=== PATIENT | male | born 1980 | race Caucasian/White ===

== ENCOUNTER 2020-04-21 13:46 | Outpatient (CLI) | payer SELFPAY ==
--- NOTE | 2020-04-21 13:52 | USCV_ITS ---
Landen Luis Jr Age: 39 Gender: M : 1980 Exam Date: 04/21/2020 14:25 Ordering Phys: MARYLOU Arizmendi APRN Technologist: Jonnie Sams Exam Location: [facility] [place] Indication: ACUTE EMBOLISM AND THROMBUS PROCEDURES: Venous duplex imaging was performed in bilateral lower extremities. The following venous structures were evaluated: common femoral vein, profunda vein, proximal portion of the greater saphenous vein, superficial femoral vein, and the popliteal vein. In addition, the posterior tibial and peroneal trunk were evaluated. Serial compression, augmentation maneuvers, and spectral Doppler flow evaluation were performed. FINDINGS: The femoral vein could not be identified at prox, mid, and distal due to patient body habitus. All other veins examined appear free of clot at this time. CONCLUSIONS Femoral vein not well visualized due to body habitus. Otherwise no evidence of LEFT LE DVT Avtar Covarrubias MD (Electronically Signed) Final Date: 21 April 2020 15:56 S
--- NOTE | 2020-04-21 13:52 | XRR_ITS ---
PROCEDURE INFORMATION: Exam: XR Left Knee Exam date and time: 04/21/2020 2:07 PM Age: 39 years old Clinical indication: Knee; Left; Patient HX: Fall a year ago, pain. Lat is best image possible due to PT condition; Additional info: S86.912a - strain of unspecified muscle(s) and tendon(s) at lower leg level, left leg, initial encounter TECHNIQUE: Imaging protocol: XR Left knee. Views: 3 views. COMPARISON: CR Knee 4 views, LEFT [id number] 10/08/2018 11:21 AM FINDINGS: Bones/joints: There is no evidence for acute fracture or malalignment. No significant joint space narrowing. There is small osteophyte formation off the medial tibial plateau. Soft tissues: Normal. The lateral view is limited. XR/XR knee LT 3V* [id number] IMPRESSION: No acute findings. If there is desire for further evaluation, a MRI could be performed.
== END 2020-04-21 13:47 | disposition home or self-care (01) ==
LOC: RAD 13:50
PROVIDERS: PCP Nurse Practitioner Family; Visit Provider Nurse Practitioner Family
DX: I82.402 Acute embolism and thrombosis of unspecified deep veins of left lower extremity; M25.562 Pain in left knee
CPT/HCPCS: 73562; 93971

== ENCOUNTER → 2020-10-30 12:31 | Outpatient (BNVA) | payer SELFPAY | PROVIDERS: PCP Nurse Practitioner Family; Visit Provider Nurse Practitioner Family | DX: I10 Essential (primary) hypertension (principal); I82.402 Acute embolism and thrombosis of unspecified deep veins of left lower extremity; N39.0 Urinary tract infection, site not specified; L03.90 Cellulitis, unspecified | CPT/HCPCS: 84550; 85651; 86140 ==

== ENCOUNTER → 2020-11-13 10:53 | Outpatient (BNVA) | payer SELFPAY | PROVIDERS: PCP Nurse Practitioner Family; Visit Provider Urology | DX: N39.0 Urinary tract infection, site not specified (principal); N39.41 Urge incontinence | CPT/HCPCS: 81003 ==

== ENCOUNTER 2020-11-24 12:16 | Outpatient (CLI) | payer SELFPAY ==
[2020-11-24 12:44] LABS: Basophils % 0.3 %; Eosinophils # 0.2 10^3/uL (0.0-0.8); Eosinophils % 1.6 %; Hematocrit 42.5 % (42.0-52.0); Hemoglobin 12.9 g/dL (11.7-16.6); Lymphocytes # 1.5 10^3/uL (0.8-4.8); Lymphocytes % 11.2 %; Mean Corpuscular HGB Conc 30.4 g/dL (30.0-36.0); Mean Corpuscular Hemoglobin 26.5 pg (28.0-34.0); Mean Corpuscular Volume 87.3 fl (80-94); Monocytes # 0.8 10^3/uL (0.2-0.9); Monocytes % 6.2 %; Neutrophils # 10.79 10^3/uL (1.8-7.7); Neutrophils % 80.2 %; Nucleated Red Blood Cells % 0 %; Platelet Count 316 10^3/cmm (130-400); Red Blood Count 4.87 10^6/uL (4.1-5.3); Red Cell Distribution Width 15.3 % (12.1-15.1); White Blood Count 13.5 10^3/uL (4.0-10.0)
[2020-11-24 13:12] LABS: LAB Peripheral Smear Sent for Review
[2020-11-24 13:14] LABS: Alanine Aminotransferase 26 U/L (0-41); Albumin Level 3.4 g/dL (3.5-5.2); Alkaline Phosphatase 84 IU/L (40-130); Aspartate Amino Transferase 20 U/L (0-40); Blood Urea Nitrogen 10 mg/dL (6-20); C Reactive Protein 27.9 mg/L (0.0-4.9); Calcium 9.1 mg/dL (8.5-10.5); Carbon Dioxide 27 mmol/L (22-29); Chloride 104 mmol/L (98-107); Chol HDL Ratio 2.49 mg/dL (1.0-5.00); Cholesterol 179 mg/dL (0-200); Globulin 3.6 g/dL (1.3-4.6); Glomerular Filtration Rate 124.9 mL/min (90-130); Glucose 105 mg/dL (65-115); HDL Cholesterol 72 mg/dL (60-100); LDL Cholesterol Calculated 85 mg/dL (50-129); LDL HDL Ratio 1.18 RATIO (0.00-3.22); Lactate Dehydrogenase 175 U/L (135-225); NT Pro B Type Natriuretic Pept 113 pg/mL (0-125); Osmolality Calculated 287 mOsm/kg (285-295); Sodium 139 mmol/L (136-145); Thyroid Stimulating Hormone 2.52 uIU/mL (0.27-4.20); Total Bilirubin 0.4 mg/dL (0.15-1.2); Triglycerides 109 mg/dL (0-150); Uric Acid 4.4 mg/dL (3.4-7.0)
[2020-11-24 13:28] LABS: Estmated Average Glucose 105; Hemoglobin A1C 5.3 % (4.0-6.0)
[2020-11-25 12:12] LABS: COMPLEMENT COMPONENT C3C 136 mg/dL (82-185); COMPLEMENT COMPONENT C4C 34 mg/dL (15-53)
[2020-11-25 12:43] LABS: Erythrocyte Sedimentation Rate 46 mm/hr (0-10)
[2020-11-25 13:12] LABS: Lyme AB Screen <0.90 index
[2020-11-25 13:18] LABS: COMPLEMENT, TOTAL (CH50) >60 U/mL (31-60)
[2020-11-25 13:36] LABS: THYROID PEROXIDASE ANTIBODIES 1 IU/mL (<9)
[2020-11-25 14:03] LABS: CENTROMERE B ANTIBODY <1.0 NEG AI (<1.0 NEG); JO-1 ANTIBODY <1.0 NEG AI (<1.0 NEG); RNP ANTIBODY <1.0 NEG AI (<1.0 NEG); SCL-70 ANTIBODY <1.0 NEG AI (<1.0 NEG); SJOGREN'S ANTIBODY (SS-A) <1.0 NEG AI (<1.0 NEG); SM ANTIBODY <1.0 NEG AI (<1.0 NEG); SS-B <1.0 NEG AI (<1.0 NEG)
[2020-11-25 15:42] LABS: ANA SCREEN, IFA NEGATIVE (NEGATIVE)
[2020-11-28 15:41] LABS: DNA AB (DS) CRITHIDIA,IFA NEGATIVE (NEGATIVE)
[2020-11-28 21:08] LABS: E. Chaffeensis AB IGG <1:64; E. Chaffeensis AB IGM <1:20
[2020-11-28 21:16] LABS: RMSF IGG NOT DETECTED; RMSF IGM NOT DETECTED
[2020-12-03 06:59] LABS: Miscellaneous Test See Scanned Lab Rpt
== END 2020-11-24 12:17 | disposition home or self-care (01) ==
LOC: LAB 12:16
PROVIDERS: PCP Nurse Practitioner Family; Visit Provider Family Medicine
DX: D72.820 Lymphocytosis (symptomatic) (principal); R35.89 Other polyuria
CPT/HCPCS: 80053; 80061; 80500; 83036; 83615; 83880; 84443; 84550; 85025; 85651; 86140; 86160; 86162; 86235; 86255; 86376; 86431; 86618; 86666; 86757; 88271; 88275

== ENCOUNTER 2020-12-07 13:28 | Outpatient (CLI) | payer SELFPAY ==
[2020-12-09 10:40] LABS: Miscellaneous Test See Scanned Lab Rpt
== END 2020-12-07 13:29 | disposition home or self-care (01) ==
LOC: LAB 13:33
PROVIDERS: PCP Family Medicine; Visit Provider Family Medicine
DX: D72.820 Lymphocytosis (symptomatic) (principal)
CPT/HCPCS: 36415; 82533; 88184; 88185

== ENCOUNTER 2021-02-04 11:32 | Outpatient (CLI) | payer SELFPAY ==
[2021-02-04 12:12] LABS: Basophils % 0.2 %; Eosinophils # 0.3 10^3/uL (0.0-0.8); Eosinophils % 2.4 %; Hematocrit 42.2 % (42.0-52.0); Hemoglobin 12.9 g/dL (11.7-16.6); Lymphocytes # 1.5 10^3/uL (0.8-4.8); Lymphocytes % 12.4 %; Mean Corpuscular HGB Conc 30.6 g/dL (30.0-36.0); Mean Corpuscular Hemoglobin 26.4 pg (28.0-34.0); Mean Corpuscular Volume 86.3 fl (80-94); Monocytes # 0.7 10^3/uL (0.2-0.9); Monocytes % 5.6 %; Neutrophils % 78.1 %; Nucleated Red Blood Cells % 0 %; Platelet Count 310 10^3/cmm (130-400); Red Blood Count 4.89 10^6/uL (4.1-5.3); Red Cell Distribution Width 15.7 % (12.1-15.1)
--- NOTE | 2021-02-04 14:53 | ONC CON_ITS ---
Dr. Xiong New Patient Note Patient: Landen Luis Unit #: [id number]: [id number] Dicatated By: Gabe Xiong M.D.Date of Visit: Feb 04, 2021 Onc MED New Patient/Consult Referring Physician: Iain Branch History of Present Illness: Mr. Landen luis, is a 40-year-old gentleman with prolonged history of isolated leukocytosis, was evaluated by PMD and lab work-up done on November 24, 2020 shows mild isolated leukocytosis, peripheral blood smear read by pathology shows leukocytosis with neutrophilia, toxic granulation identified otherwise unremarkable patient underwent whole blood flow cytometry ordered by PMD on November 24, 2020 showed no evident myeloid or lymphoid population detected. Because of longstanding history of isolated leukocytosis, patient was referred to hematology for evaluation. Patient denies any night sweats, denies any recurrent fever, denies any weight loss, patient has morbid obesity, history of recurrent urine tract infections, conjunctivitis due to contact lens or allergies., Denies smoking or alcohol use. Denies any chronic sinus problem. Denies any abdominal fullness or peripheral lymphadenopathy. Denies any chronic skin infection. Past Medical History: Mr. Luis's medical history consists of history of loer extremity DVT, hypertension, and left knee osteophyte. Past Surgical History: There is no documented surgical history. Medications: Metoprolol Tartrate 1 Tablet (of 25 mg) Oral b.i.d. Allergies: amLODIPine Besylate and Penicillins. Social History: Mr. 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 Mr. Luis has never smoked. He has no history of drinking. Family History: There is no documented family history. Review Of Symptoms: Review of Systems is not available for this patient. Vital Signs: Performed on Feb 04, 2021 12:44: 8, 5, 0.00, 0.00 sq.m, 70 in, 99 %, 124 /min (HIGH), 20 /min, 186/113 mm(hg) (HIGH), 97.9 F (LOW), and lbs. Performance Status: 0 - Fully active, able to carry on all predisease activities without restrictions. (ECOG) Physical Examination: ENMT - No mouth sores, no thrush, no jaundice, Respiratory - Poor air entry otherwise clear, Cardiovascular - Regular rate and rhythm of heart, Abdomen - Soft, bowel sounds present, Extremities - No visible edema. Lab/Imaging: Most recent lab results are not available for this patient. Impression: Isolated mild leukocytosis/neutrophilia with normal hemoglobin/platelets, Etiology probably reactive as whole blood flow cytometry done on November 24, 2020 shows no aberrant myeloid or lymphoid population detected, Underlying early myeloproliferative disorder cannot be ruled out Morbid obesity History of recurrent UTIs Essential hypertension DVT, lower extremities Urgency incontinence. Plan: Discussed with patient regarding his labs white blood count 12 hemoglobin 12.9 hematocrit 42.2 platelets 310,000 MCV 86.3 neutrophil count 78%. Clinically, patient doing well with no new signs symptoms testing of infection or inflammation, etiology of his mild leukocytosis appears reactive probably due to chronic inflammation as his sed rate checked on January 24, 2021 was 46 normal being less than 10 patient has chronic conjunctivitis, patient attributed that to contact lens or allergies, may benefit from ophthalmology evaluation, history of recurrent UTI and urine incontinence, may have chronic cystitis causing mild isolated leukocytosis. Other possibility could be due to sleep apnea due to hypoxic induced inflammatory changes in patient with sleep apnea Moreover patient is also complaining of off and on getting up at night while gasping for air, consistent with possibility of sleep apnea Whole blood flow cytometry ordered by PMD showed no aberrant myeloid or lymphoid population, which will rule out malignant process but early myeloproliferative disorder cannot be ruled out. At this point, we will monitor and he will return to clinic in 2 months with CBC in the meantime we will recommend sleep study to confirm sleep apnea, if confirmed, may benefit from CPAP machine, which may help with mild isolated leukocytosis. Also recommend not to use contact lens or consider ophthalmology evaluation. For recurrent UTI and and urine incontinence may recommend urology evaluation. Patient was advised to maintain good hygiene especially in the underarms, under breasts and inguinal area Signed By: Gabe Xiong M.D. <<Signature on File>>
== END 2021-02-04 11:33 | disposition home or self-care (01) ==
LOC: ONCMED 11:36
PROVIDERS: PCP Family Medicine; Visit Provider Internal Medicine Hematology & Oncology
DX: D72.829 Elevated white blood cell count, unspecified (principal); E66.01 Morbid (severe) obesity due to excess calories; I10 Essential (primary) hypertension; I82.409 Acute embolism and thrombosis of unspecified deep veins of unspecified lower extremity; N39.41 Urge incontinence; N39.0 Urinary tract infection, site not specified; Z79.899 Other long term (current) drug therapy
CPT/HCPCS: 36415; 85025; 99204

== ENCOUNTER 2021-04-16 09:30 | Outpatient (CLI) | payer SELFPAY ==
[2021-04-16 10:16] LABS: Basophils % 0.4 %; Eosinophils # 0.2 10^3/uL (0.0-0.8); Eosinophils % 2.2 %; Hematocrit 42.1 % (42.0-52.0); Lymphocytes # 1.4 10^3/uL (0.8-4.8); Lymphocytes % 12.5 %; Mean Corpuscular HGB Conc 30.9 g/dL (30.0-36.0); Mean Corpuscular Hemoglobin 26.5 pg (28.0-34.0); Mean Corpuscular Volume 85.7 fl (80-94); Mean Platelet Volume 11.4 fL (7.4-10.4); Monocytes # 0.8 10^3/uL (0.2-0.9); Monocytes % 7.5 %; Neutrophils # 8.43 10^3/uL (1.8-7.7); Nucleated Red Blood Cells % 0 %; Platelet Count 289 10^3/cmm (130-400); Red Blood Count 4.91 10^6/uL (4.1-5.3); Red Cell Distribution Width 15.7 % (12.1-15.1); White Blood Count 10.9 10^3/uL (4.0-10.0)
== END 2021-04-16 09:31 | disposition home or self-care (01) ==
PROVIDERS: PCP Family Medicine; Visit Provider Internal Medicine Hematology & Oncology
DX: D72.820 Lymphocytosis (symptomatic) (principal)
CPT/HCPCS: 36415; 85025

== ENCOUNTER → 2021-05-04 00:01 | Outpatient (BNVA) | payer SELFPAY | PROVIDERS: PCP Family Medicine; Visit Provider Nurse Practitioner Family | DX: R42 Dizziness and giddiness (principal); H66.93 Otitis media, unspecified, bilateral; D64.9 Anemia, unspecified; I10 Essential (primary) hypertension; R53.83 Other fatigue | CPT/HCPCS: 80053; 80061; 82306; 83036; 83550; 83880; 84443; 85025 ==

== ENCOUNTER 2022-09-15 15:13 | Inpatient (IN) | payer MEDICAID, SELFPAY ==
[2022-09-15] VITALS (7 sets, daily range): BP systolic 163–202; BP diastolic 74–121; PULSE 87–99; RESP 15–17; TEMP 36.8–37.2; O2SAT 95–97
--- NOTE | 2022-09-15 15:45 | USR_ITS ---
PROCEDURE INFORMATION: Exam: US Left Non-Vascular Joint or Other Extremity Structure Exam date and time: 09/15/2022 4:53 PM Age: 42 years old Clinical indication: Cellulitis and edema; Knee; Left; Upper leg and lower leg; Patient HX: Post/medial distal thigh redness and swelling; Additional info: Swollen leg panus on the left TECHNIQUE: Imaging protocol: Left US joint or other nonvascular extremity structure or structures. Real-time ultrasound with image documentation. Limited study. Exam focused on the lower extremity in the region of clinical interest. COMPARISON: US CV venous duplex [facility] [id number] 09/15/2022 4:36 PM FINDINGS: The area of clinical concern in the left leg was evaluated. This is reportedly an area of swelling and redness. Only edematous changes were seen. No mass or fluid collection was identified. US/US soft tissue/extremity [id number] IMPRESSION: As above.
--- NOTE | 2022-09-15 15:45 | USR_ITS ---
PROCEDURE INFORMATION: Exam: US Duplex Left Lower Extremity Veins, Limited Exam date and time: 09/15/2022 4:36 PM Age: 42 years old Clinical indication: Pain; Leg, upper and leg, lower; Left; Additional info: Swelling pain TECHNIQUE: Imaging protocol: Real-time duplex ultrasound of the left extremity with 2-D chandler scale, color Doppler flow and spectral waveform analysis including responses to compression and other maneuvers (when performed) with image documentation. Limited exam focused on the left lower extremity veins. COMPARISON: CR XR knee LT 3V* [id number] 04/21/2020 2:08 PM FINDINGS: Left deep veins: Unremarkable. The common femoral, femoral, proximal profunda femoral and popliteal veins as well as the visualized deep veins of the lower leg are patent without thrombus. Normal Doppler waveforms. Normal compressibility and/or augmentation response. Superficial veins: Unremarkable. Saphenofemoral junction is patent without thrombus. Soft tissues: Unremarkable. US/[place] [id number] IMPRESSION: No evidence of deep vein thrombosis.
[2022-09-15 16:10] LABS: Basophils # 0.1 10^3/uL (0.0-0.1); Basophils % 0.4 %; Eosinophils # 0.3 10^3/uL (0.0-0.8); Hematocrit 41.5 % (42.0-52.0); Hemoglobin 12.1 g/dL (11.7-16.6); Lymphocytes # 1.7 10^3/uL (0.8-4.8); Lymphocytes % 12.5 %; Mean Corpuscular HGB Conc 29.2 g/dL (30.0-36.0); Mean Corpuscular Hemoglobin 26.1 pg (28.0-34.0); Mean Corpuscular Volume 89.4 fl (80-94); Mean Platelet Volume 10.9 fL (7.4-10.4); Monocytes % 7.5 %; Neutrophils # 10.46 10^3/uL (1.8-7.7); Neutrophils % 76.6 %; Nucleated Red Blood Cells % 0 %; Platelet Count 323 10^3/cmm (130-400); Red Blood Count 4.64 10^6/uL (4.1-5.3); Red Cell Distribution Width 16.2 % (12.1-15.1); White Blood Count 13.7 10^3/uL (4.0-10.0)
--- NOTE | 2022-09-15 16:34 | ED_ITS ---
HPI - Skin/Abscess/Foreign Bdy General: Chief complaint: Skin/Abscess/Foreign Body Stated complaint: spot on LT leg/pain Time Seen by Provider: 09/15/22 15:36 Source: patient Mode of arrival: ambulatory History of Present Illness: 42-year-old male presents to the emergency room with complaints of a red painful area medial aspect of his left leg. Patient is super morbidly obese and has a pannus of the left medial thigh. Initially said a couple of months ago it was a little bit reddened and inflamed but has progressively worsened to the point where it involves this entire pannus and has spread proximally. He has not noticed any fever sweats or chills. He has not had any open wounds or drainage. He went to his primary care doctor and was directed here today. MD complaint: other (Cellulitis) Onset (ago): week(s) Location: LLE Severity: moderate Relieving factors: none Exacerbating factors: none Associated symptoms: Deny arthralgias, chills, cough, fever(s), itching, myalgias, nausea, rigidity, short of breath or vomiting Review of Systems Const: Denies: fever(s) or chills Card: Reports: edema and swelling of feet/ankles; Denies: chest pain, dyspnea on exertion or orthopnea Resp: Denies: dyspnea, productive cough or non-productive cough GI: Denies: abdominal pain, nausea or vomiting : Denies: flank pain, dysuria, urinary frequency or urinary urgency Skin/Breast: Denies: rash or pruritus [facility] ED PFSH: Medical History Acute bilateral otitis media Cellulitis Conjunctivitis DVT, lower extremity Elevated WBC count Essential hypertension Hypertension screen Iron deficiency anemia Knee pain, left Medication management Morbidly obese Osteophyte, left knee Strain of left knee Takes iron supplements Urgency incontinence Urinary tract infection in male Vertigo Family History Father , UNKNOWN AGE Automobile accident Social History Smoking and tobacco status: never smoked Alcohol intake: never Substance/Drug Use: never Marital status: Single Current occupational status: employed 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 Physical Exam Const: GENERAL APPEARANCE: cooperative and comfortable ORIENTATION/CONSCIOUSNESS: Yes awake, Yes oriented to person, Yes oriented to place and Yes oriented to time HENMT: COMMON NORMALS: normocephalic, atraumatic and hearing grossly normal bilaterally HEAD & SCALP: normocephalic and atraumatic Resp: COMMON NORMALS: normal respiratory effort, No retractions, No use of accessory muscles and clear to auscultation bilaterally AUSCULTATION: clear to auscultation bilaterally Cardio: COMMON NORMALS: regular rate, regular rhythm and No murmurs present (Cardio) RATE: regular rate RHYTHM: regular rhythm GI: COMMON NORMALS: Soft to palpation and No hepatosplenomegaly present AUSCULTATION: Yes normoactive bowel sounds PALPATION: Yes Soft to palpation, No Tenderness to palpation present (GI), No Guarding due to palpation present (GI) and Yes No hepatosplenomegaly present : OTHER: No evidence of cellulitis extending to the perineal or genital area Extremity: NARRATIVE EXTREMITY EXAM: Left medial leg has a reddened inflamed area. Overlying skin is indurated there is no fluctuant palpable area no skin breakdown ulceration or pointing. Lymphangitic spread proximally Neuro: SENSORIUM/ORIENTATION: Yes oriented to person, Yes oriented to place and Yes oriented to time Skin: COMMON NORMALS: no rashes or lesions noted GENERAL SKIN EXAM: no rashes or lesions noted Course Vital Signs: Vital signs: Vital Signs Temperature 98.1 F 09/16/22 03:51 Pulse Rate 72 09/16/22 05:43 Respiratory Rate 16 09/16/22 03:51 Blood Pressure 171/74 09/16/22 03:51 Pulse Oximetry 93 09/16/22 03:51 Oxygen Delivery Me thod Room Air 09/16/22 03:51 MDM - Skin/Abscess/Foreign Bdy Medicial Decision Making Significant cellulitis with leukocytosis with a potential to progress to even more serious infection. I think at this point he will require IV antibiotics to control and can convert to 2L. There is some proximal spread but no evidence of development infection in the perineal or scrotal area no foreign years gangrene. Discussed with hospitalist orders written Medical Records I reviewed the patient's medical records. Lab Data I reviewed the patient's lab results. 09/15/22 15:53 09/16/22 05:06 Radiology Impressions Soft Tissue Ultrasound 09/15/22 15:45 IMPRESSION: As above. Venous Duplex 09/15/22 15:45 IMPRESSION: No evidence of deep vein thrombosis. Laboratory Results WBC 13.7 10^3/uL (4.0-10.0) H 09/15/22 15:53 RBC 4.64 10^6/uL (4.1-5.3) 09/15/22 15:53 Hgb 12.1 g/dL (11.7-16.6) 09/15/22 15:53 Hct 41.5 % (42.0-52.0) L 09/15/22 15:53 MCV 89.4 fl (80-94) 09/15/22 15:53 MCH 26.1 pg (28.0-34.0) L 09/15/22 15:53 MCHC 29.2 g/dL (30.0-36.0) L 09/15/22 15:53 RDW 16.2 % (12.1-15.1) H 09/15/22 15:53 Plt Count 323 10^3/cmm (130-400) 09/15/22 15:53 MPV 10.9 fL (7.4-10.4) H 09/15/22 15:53 Neut % (Auto) 76.6 % 09/15/22 15:53 Lymph % (Auto) 12.5 % 09/15/22 15:53 Frontier % (Auto) 7.5 % 09/15/22 15:53 Eos % (Auto) 2.0 % 09/15/22 15:53 Baso % (Auto) 0.4 % 09/15/22 15:53 Neut # (Auto) 10.46 10^3/uL (1.8-7.7) H 09/15/22 15:53 Lymph # (Auto) 1.7 10^3/uL (0.8-4.8) 09/15/22 15:53 Frontier # (Auto) 1.0 10^3/uL (0.2-0.9) H 09/15/22 15:53 Eos # (Auto) 0.3 10^3/uL (0.0-0.8) 09/15/22 15:53 Baso # (Auto) 0.1 10^3/uL (0.0-0.1) 09/15/22 15:53 Nucleated RBC % (auto) 0 % 09/15/22 15:53 Nucleated RBCs # 0.0 /100WBC 09/15/22 15:53 Sodium 137 mmol/L (136-145) 09/15/22 15:53 Potassium 4.0 mmol/L (3.5-5.1) 09/15/22 15:53 Chloride 102 mmol/L (98-107) 09/15/22 15:53 Carbon Dioxide 25 mmol/L (22-29) 09/15/22 15:53 Anion Gap 14.0 (5-19) 09/15/22 15:53 BUN 9 mg/dL (6-20) 09/15/22 15:53 Creatinine 0.6 mg/dL (0.7-1.2) L 09/15/22 15:53 GFR Calculation 147.8 mL/min (90-130) H 09/15/22 15:53 Glucose 100 mg/dL (65-115) 09/15/22 15:53 Calculated Osmolality 283 mOsm/kg (285-295) L 09/15/22 15:53 Calcium 9.0 mg/dL (8.5-10.5) 09/15/22 15:53 Total Bilirubin 0.6 mg/dL (0.15-1.2) 09/15/22 15:53 AST 19 U/L (0-40) 09/15/22 15:53 ALT 23 U/L (0-41) 09/15/22 15:53 Alkaline Phosphatase 77 U/L (40-130) 09/15/22 15:53 Total Protein 6.9 g/dL (6.6-8.7) 09/15/22 15:53 Albumin 3.3 g/dL (3.5-5.2) L 09/15/22 15:53 Globulin 3.6 g/dL (1.3-4.6) 09/15/22 15:53 Discharge Plan Discharge Patient Disposition: Admitted As Inpatient Admit Provider: Abundio Lopez Clinical Impression: Cellulitis of left thigh, Morbidly obese Condition: Stable Coding Level of Care Code ED Primary Clinician for Dominique Garrido
[2022-09-15 16:37] LABS: Alanine Aminotransferase 23 U/L (0-41); Albumin Level 3.3 g/dL (3.5-5.2); Alkaline Phosphatase 77 U/L (40-130); Aspartate Amino Transferase 19 U/L (0-40); Blood Urea Nitrogen 9 mg/dL (6-20); Carbon Dioxide 25 mmol/L (22-29); Chloride 102 mmol/L (98-107); Globulin 3.6 g/dL (1.3-4.6); Glomerular Filtration Rate 147.8 mL/min (90-130); Glucose 100 mg/dL (65-115); Osmolality Calculated 283 mOsm/kg (285-295); Sodium 137 mmol/L (136-145); Total Bilirubin 0.6 mg/dL (0.15-1.2); Total Protein 6.9 g/dL (6.6-8.7)
--- NOTE | 2022-09-15 17:44 | PM.HP ---
Providers/Chief Complaint Admitting Physician: Dr. Abundio Lopez Primary Care Provider: Iain Branch MD Chief Complaint: spot on LT leg/pain History of Present Illness Landen Luis Jr is a 42yo M with Hx of HTN, Hx of PATRICIA and super-morbid obesity (BMI 80.4) presented to ED with red painful area on LEFT inner thigh. Onset of Sx roughly 2 months ago. States he initially noticed a small area of redness which he did not pay much attention to. over the next 1.5 months there was minimal worsenign of region; however, over the past 1-2 weeks he has developed significant growth of redness and tenderness in area. Denies experiencing similar symptoms in past or cellulitis. Describes firm growing mass on inner thigh. attempted BC powder at home, minimal improvement. no alleviating factors. worsened by movement. Describes pain as a constant 3/10 throbbing sensation with intermittent 10/10 squeezing sensation when touched or moved. Admits to difficulty ambulating 2/2 pain. denies extension into groin region. able to urinate effectively. Went to PCP's office this AM, was sent by ANNEALING OVEN OPERATOR to ED for management. Denies CP, palpitations, SOB, cough, N/V/D/C, abd pain, OCHOA, vision changes, loss of sensation or strength in extremities. Review of Systems General: Reports: 10 or more systems reviewed and unremarkable except in HPI and below Const: Denies: fever(s) or chills Eyes: Denies: change in vision or blurry vision ENMT: Denies: throat pain, odynophagia or hoarseness Card: Denies: chest pain, palpitations or dyspnea on exertion Resp: Denies: dyspnea, productive cough, non-productive cough or wheezing GI: Denies: abdominal pain, nausea, vomiting, diarrhea or constipation Musc: Denies: neck pain, back pain or joint pain Skin/Breast: Reports: erythema, skin pain, skin tenderness and new lesions (left leg); Denies: rash Neuro: Denies: headache(s), numbness in extremities or weakness in extremities Medications/Allergies Home Medications Medication Instructions Recorded Confirmed Last Taken Type famotidine 40 mg tablet See Rx Instructions .Route 02/15/21 09/15/22 Unknown Rx .COMPLEX #30 tabs docusate sodium 100 mg capsule 100 mg PO BID 30 days #60 caps 05/06/21 09/15/22 Unknown Rx (Colace) ferrous sulfate 325 mg (65 mg 325 mg PO BID 30 days #60 tabs 05/06/21 09/15/22 Unknown Rx iron) tablet lisinopril 20 mg tablet 20 mg PO DAILY #90 tabs 08/18/22 09/15/22 Unknown Rx Allergies Allergy/AdvReac Type Severity Reaction Status Date / Time amlodipine Allergy nose bleeds Verified 09/15/22 15:32 Penicillins Allergy unknown Verified 09/15/22 15:32 PFSH Acute PFSH: Medical History Acute bilateral otitis media Cellulitis Conjunctivitis DVT, lower extremity Elevated WBC count Essential hypertension Hypertension screen Iron deficiency anemia Knee pain, left Medication management Morbidly obese Osteophyte, left knee Strain of left knee Takes iron supplements Urgency incontinence Urinary tract infection in male Vertigo Family History Father , UNKNOWN AGE Automobile accident Social History Smoking and tobacco status: never smoked Alcohol intake: never Substance/Drug Use: never Marital status: Single Current occupational status: employed 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 good judgment and insight. Neck: FROM Chest: atraumatic, symmetrical CVD: RRR, normal S1 and S2, no M/R/G. 2+ pulse x 4 extremities, no JVD, no carotid bruit. 2+ edema bilat mid legs Lungs: distant but clear lung sounds in all dolan, no rhonchi, wheezing, rales. Abdomen: morbidly obese with multiple pannus layers, NT, ND, soft, NABS. No hepatosplenomegaly, no mass. umbilicus midline w/o herniation : normal anatomy, no cellulitis of groin region. partial hidden penis syndrome. Extremities: FROM and 5/5 strength in BUE and BLE. . Neuro: CNII-XII grossly intact. No atrophy, weakness, tremors or clonus.? 2+ DTR, no sensory abnormalities. Skin:? multiple pannus present on abdomen and legs. -L leg: significant erythema on medial aspect of this from knee to 10cm distal to inguinal region. indurated, tense with surrounding erythema, tender to touch, no signs of weeping, discharge or fungal infection. Data 09/15/22 15:53 09/15/22 15:53 A&P Assessment and plan (1) Cellulitis of left thigh: significant cellulitis w/o apparent abscess or drainage encompases a significant region of medial thigh covering 2 pannus. no extension to scrotum IV Vanc per pharmacy Cx pending wound care (2) HTN, goal below 130/80: will discontinue lisinopril START losartan 50mg tonight START HCTZ 25mg in AM (3) Bilateral lower extremity edema: 2+ mid leg distally will start diuretic in AM likely 2/2 super morbid obesity. low concern for HF (4) Morbidly obese: BMI 80.4 Plan admit to med surg IV Vanc -Cx pending STOP lisinopril START losartan 50mg, HCTZ 25mg holli 40 BID FULL CODE Attestations Medical Necessity Statement*: will require two overnight stays for IV Antibiotics Coding Level of Care Code 34908 Diagnoses Cellulitis of left thigh L03.116 HTN, goal below 130/80 I10 Bilateral lower extremity edema R60.0 Morbidly obese E66.01
[2022-09-15] MEDS: vancomycin 1,000 MG in sodium chloride 0.9% 250 ML 250 MG IV (18:16)
[2022-09-15] MEDS: losartan 50 mg Tablet PO (19:58)
[2022-09-15] MEDS: enoxaparin 40 mg/0.4 mL Syringe SUBCUT (19:58)
[2022-09-15] MEDS: vancomycin 2,000 MG/400 ML PIGGYBACK 200 MG IV (22:02)
[2022-09-16] VITALS (8 sets, daily range): BP systolic 147–185; BP diastolic 74–111; PULSE 72–87; RESP 16–20; TEMP 36.3–36.7; O2SAT 92–96
[2022-09-16 06:07] LABS: Estmated Average Glucose 108; Hemoglobin A1C 5.4 % (4.0-6.0)
[2022-09-16 06:17] LABS: Chol HDL Ratio 2.64 mg/dL (1.0-5.00); Cholesterol 177 mg/dL (0-200); HDL Cholesterol 67 mg/dL (60-100); LDL Cholesterol Calculated 93 mg/dL (50-129); LDL HDL Ratio 1.39 RATIO (0.00-3.22); NT Pro B Type Natriuretic Pept 130 pg/mL (0-125); Triglycerides 85 mg/dL (0-150)
[2022-09-16 06:27] LABS: Alanine Aminotransferase 23 U/L (0-41); Albumin Level 3.2 g/dL (3.5-5.2); Alkaline Phosphatase 72 U/L (40-130); Anion Gap 12.1 (5-19); Aspartate Amino Transferase 19 U/L (0-40); Blood Urea Nitrogen 9 mg/dL (6-20); Calcium 8.5 mg/dL (8.5-10.5); Carbon Dioxide 27 mmol/L (22-29); Chloride 103 mmol/L (98-107); Globulin 3.3 g/dL (1.3-4.6); Glomerular Filtration Rate 147.8 mL/min (90-130); Glucose 105 mg/dL (65-115); Osmolality Calculated 285 mOsm/kg (285-295); Phosphorus 3.3 mg/dL (2.5-4.5); Potassium 4.1 mmol/L (3.5-5.1); Sodium 138 mmol/L (136-145); Total Bilirubin 0.8 mg/dL (0.15-1.2); Total Protein 6.5 g/dL (6.6-8.7)
[2022-09-16] MEDS: enoxaparin 40 mg/0.4 mL Syringe SUBCUT ×2 (06:35→17:49)
--- NOTE | 2022-09-16 07:02 | PM.PN ---
Subjective Subjective: Seen at bedside this AM. States he feels much improved. able to ambulate without significant pain. size of region of erythema has also improved. overnight BP still elevated, starting HCTZ this AM. pain superimposed on poorly controlled OP HTN. denies CP, palpitations, SOB, N/V/D/C Medications: Reviewed: Yes Vitals/I&O/Wt Last Vital Signs Temp 98.1 F 09/16/22 03:51 Pulse 72 09/16/22 05:43 Resp 16 09/16/22 03:51 BP 171/74 09/16/22 03:51 Pulse Ox 93 09/16/22 03:51 O2 Del Method Room Air 09/16/22 03:51 09/15/22 09/16/22 09/16/22 22:59 06:59 14:59 Intake Total 250 / 250 400 / 650 Output Total 600 / 600 Balance 250 / 250 -200 / 50 Weight last 48 hrs Weight 620 lb 6 oz Weight 560 lb Physical Exam Narrative: General: AOx3, no acute distress, malodorous, morbidly obese psych: appropriate mood and affect. good judgment and insight. CVD: RRR, normal S1 and S2, no M/R/G. 2+ pulse x 4 extremities, no JVD, no carotid bruit. 2+ edema bilat mid legs Lungs: distant but clear lung sounds in all dolan, no rhonchi, wheezing, rales. Abdomen: morbidly obese with multiple pannus layers, NT, ND, soft, NABS. No hepatosplenomegaly, no mass. umbilicus midline w/o herniation Extremities: FROM and 5/5 strength in BUE and BLE. . Neuro: CNII-XII grossly intact. no sensory abnormalities. Skin:? multiple pannus present on abdomen and legs. -L leg: significant erythema on medial aspect of this from knee to 10cm distal to inguinal region. indurated, tense with surrounding erythema,. area no longer significantly ttp, area smaller than on admission, no weeping/discharge. firm to touch. Data 09/15/22 15:53 09/16/22 05:06 Micro: Microbiology 09/15/22 15:53 Blood Culture - Preliminary Blood SPECIMEN COLLECTED 09/15/22 15:57 Blood Culture - Preliminary Blood SPECIMEN COLLECTED A&P Assessment and plan (1) Cellulitis of left thigh: significant cellulitis w/o apparent abscess or drainage. no extension past lines drawn on admission. improvement on Abx IV Vanc Cx pending (2) HTN, goal below 130/80: will increase evening losartan to 100mg, Continue AM HCTZ 25mg (3) Bilateral lower extremity edema: 2+ mid leg distally continue AM diuretic, possible need to increase dosage. likely 2/2 super morbid obesity. low concern for HF (4) Morbidly obese: BMI 80.4 dietary consulted Plan IV Vanc -Cx pending Discontinued lisinopril Started losartan 100mg qhs, HCTZ 25mg qAM. holli 40 BID FULL CODE plan: likely discharge in AM on PO Abx. Attestations Medical Necessity Statement*: will require 2 overnight stays for IV Abx Coding Level of Care Code 92480 Diagnoses Cellulitis of left thigh L03.116 HTN, goal below 130/80 I10 Bilateral lower extremity edema R60.0 Morbidly obese E66.01
[2022-09-16] MEDS: famotidine 20 mg Tablet PO ×2 (08:42→17:49)
[2022-09-16] MEDS: hydroCHLOROthiazide 25 mg Tablet PO (08:42)
[2022-09-16] MEDS: labetalol 5 mg/mL SDV 20mL 10 MG IVP ×2 (10:43→16:15)
[2022-09-16] MEDS: vancomycin 2,000 MG/400 ML PIGGYBACK 200 MG IV ×2 (10:44→22:32)
[2022-09-16] MEDS: losartan 50 mg Tablet 100 MG PO (17:48)
[2022-09-17] VITALS (10 sets, daily range): BP systolic 130–170; BP diastolic 75–97; PULSE 66–87; RESP 18–20; TEMP 36.1–36.8; O2SAT 95–97
[2022-09-17 03:38] LABS: Alanine Aminotransferase 23 U/L (0-41); Albumin Level 3.5 g/dL (3.5-5.2); Alkaline Phosphatase 82 U/L (40-130); Anion Gap 11.3 (5-19); Aspartate Amino Transferase 19 U/L (0-40); Blood Urea Nitrogen 7 mg/dL (6-20); Calcium 8.9 mg/dL (8.5-10.5); Carbon Dioxide 30 mmol/L (22-29); Chloride 102 mmol/L (98-107); Glomerular Filtration Rate 123.7 mL/min (90-130); Glucose 98 mg/dL (65-115); Osmolality Calculated 286 mOsm/kg (285-295); Potassium 4.3 mmol/L (3.5-5.1); Sodium 139 mmol/L (136-145); Total Protein 6.5 g/dL (6.6-8.7)
[2022-09-17] MEDS: enoxaparin 40 mg/0.4 mL Syringe SUBCUT ×2 (05:53→18:09)
[2022-09-17] MEDS: losartan 50 mg Tablet 100 MG PO (09:16)
[2022-09-17] MEDS: hydroCHLOROthiazide 25 mg Tablet PO (09:17)
[2022-09-17] MEDS: famotidine 20 mg Tablet PO ×2 (09:17→17:09)
[2022-09-17 09:50] LABS: Vancomycin Trough 10.4 ug/mL (10-15)
[2022-09-17] MEDS: vancomycin 2,000 MG/400 ML PIGGYBACK 200 MG IV ×2 (11:23→22:16)
--- NOTE | 2022-09-17 14:21 | PM.PN ---
Subjective Subjective: Reports feeling better today. Pain is decreased. Has been able to ambulate and be out of bed some. Vitals/I&O/Wt Last Vital Signs Temp 97.0 F L 09/17/22 11:50 Pulse 79 09/17/22 11:50 Resp 19 H 09/17/22 11:50 BP 130/75 09/17/22 11:50 Pulse Ox 95 09/17/22 11:50 O2 Del Method Room Air 09/17/22 11:50 09/16/22 09/17/22 09/17/22 22:59 06:59 14:59 Intake Total 480 / 1560 400 / 1960 1400 / 1400 Balance 480 / 1560 400 / 1960 1400 / 1400 Weight last 48 hrs Weight 608 lb 8 oz Weight 620 lb 6 oz Weight 560 lb Physical Exam Narrative: General: Cooperative patient in no apparent distress. Obese. HEENT: Normocephalic, Atraumatic. External ears normal. Nasal passages patent without drainage. MMM. Heart: RRR. Resp: LCTA. No respiratory distress, no use of accessory muscles. Abd: Soft, non-tender. Non-distended. Extremities: Left upper thigh with erythema, tenderness and swelling. Skin: No other rash or lesions on exposed areas. Neuro: No focal motor or sensory loss. Gait is normal. Data 09/15/22 15:53 09/17/22 02:43 Micro: Microbiology 09/15/22 15:57 Blood Culture - Preliminary Blood NEGATIVE TO DATE 09/15/22 15:53 Blood Culture - Preliminary Blood NEGATIVE TO DATE A&P Assessment and plan (1) Cellulitis of left thigh: Acute. Improved. Continue Vancomycin. (2) HTN, goal below 130/80: will increase evening losartan to 100mg, Continue AM HCTZ 25mg (3) Bilateral lower extremity edema: 2+ mid leg distally continue AM diuretic, possible need to increase dosage. likely 2/2 super morbid obesity. low concern for HF (4) Morbidly obese: BMI 80.4 dietary consulted Plan Continue IV Vancomycin x 1 more day. Pain and erythema are receding. Will plan discharge tomorrow on oral antibiotics. Code Status: Full IVF: none DVT PPx: Lovenox GI PPx: Famotidine ABx: Vancomycin Diet: Cardiac Discharge plan: Home in A.M. Attestations Medical Necessity Statement*: Continue inpatient stay for IV antibiotics, cultures and de-escalation of antibiotics. Coding Level of Care Code Acute Code for Chg Fwd Straight Forward/Low MDM includes number and complexity of problems actively addressed during encounter, amount and/or complexity of data reviewed/ordered and described risk of complication, morbidity or mortality of management as documented Diagnoses Cellulitis of left thigh L03.116 HTN, goal below 130/80 I10 Bilateral lower extremity edema R60.0 Morbidly obese E66.01
--- NOTE | 2022-09-17 18:42 | PC.NURSE ---
Patient resting in bed, AAOx4, VSS, OOBTC and bathroom without assistance and tolerating it well. Room clean and clutter free with call light within reach. Family visited during shift.
[2022-09-18] VITALS (7 sets, daily range): BP systolic 136–166; BP diastolic 78–97; PULSE 80–96; RESP 17–18; TEMP 36.5–36.7; O2SAT 94–98
[2022-09-18 03:55] LABS: Alanine Aminotransferase 24 U/L (0-41); Albumin Level 3.4 g/dL (3.5-5.2); Alkaline Phosphatase 84 U/L (40-130); Anion Gap 13.2 (5-19); Aspartate Amino Transferase 19 U/L (0-40); Blood Urea Nitrogen 8 mg/dL (6-20); Calcium 8.8 mg/dL (8.5-10.5); Carbon Dioxide 29 mmol/L (22-29); Chloride 102 mmol/L (98-107); Globulin 2.9 g/dL (1.3-4.6); Glucose 108 mg/dL (65-115); Osmolality Calculated 289 mOsm/kg (285-295); Potassium 4.2 mmol/L (3.5-5.1); Sodium 140 mmol/L (136-145); Total Bilirubin 0.8 mg/dL (0.15-1.2); Total Protein 6.3 g/dL (6.6-8.7)
[2022-09-18] MEDS: enoxaparin 40 mg/0.4 mL Syringe SUBCUT (06:07)
[2022-09-18] MEDS: famotidine 20 mg Tablet PO (08:26)
[2022-09-18] MEDS: losartan 50 mg Tablet 100 MG PO (08:26)
[2022-09-18] MEDS: hydroCHLOROthiazide 25 mg Tablet PO (08:27)
[2022-09-18] MEDS: vancomycin 2,000 MG/400 ML PIGGYBACK 200 MG IV (10:15)
--- NOTE | 2022-09-18 11:24 | P.DS_ITS ---
Discharge Providers Date of Admission: 09/15/22 17:56 Date of Discharge: September 18, 2022 Attending Provider at Admission: Abundio Lopez MD Attending Provider at Discharge: Omar Arteaga DO Primary Care Provider: Iain Branch MD Diagnoses at Discharge Discharge Diagnosis (1) Cellulitis of left thigh: Status: Acute (2) HTN, goal below 130/80: Status: Acute (3) Bilateral lower extremity edema: Status: Acute (4) Morbidly obese: Status: Acute Reason for Visit Reason for Visit: spot on LT leg/pain Hospital Course Hospital Course Mr. Janelle Velazquez is a 42yo M with Hx of HTN, Hx of PATRICIA and super-morbid obesity (BMI 80.4) presented to ED with red painful area on LEFT inner thigh. Reports symptoms started about 2 months ago with a small area of redness. States that this worsened over the next several weeks, until he began to develop some severe tenderness and swelling. States that his symptoms worsened with movement. 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 He did attempt some home treatment to no avail. He did go to his PCPs office who sent him to the ER for further evaluation. In the ER, his left inner thigh was noted to be swollen, tender, very erythematous. White blood cell count was elevated to 13.7 with neutrophilia. Soft tissue ultrasound was performed showing diffuse edema. Venous duplex was performed and negative for DVT. He was started on vancomycin and this was continued for a total of 5 days. He did have improvement in his symptoms, and receding of the redness away from the outlined borders. He was discharged to home on Bactrim to complete a total of 10 days of Abx and recommended to follow up with his PCP in one week. Physical Exam Narrative: General: Cooperative patient in no apparent distress. Obese. HEENT: Normocephalic, Atraumatic. External ears normal. Nasal passages patent without drainage. MMM. Heart: RRR. Resp: LCTA. No respiratory distress, no use of accessory muscles. Abd: Soft, non-tender. Non-distended. Extremities: Left upper thigh with erythema, tenderness and swelling, improved from previous exam. Skin: No other rash or lesions on exposed areas. Neuro: No focal motor or sensory loss. Gait is normal. Discharge Data Studies Completed and Pending Completed Studies During Hospitalization Category Date Time Status US soft tissue and or extremity [US soft tissue/ Ultrasound 09/15/22 15:45 Completed extremity 59262] Stat US venous duplex lower extremity LT [CV venous duplex Ultrasound 09/15/22 15:45 [place] [address]] Stat Pending at discharge Category Date Time Status Blood Culture Stat Lab 09/15/22 15:53 Results Radiology Impressions Soft Tissue Ultrasound 09/15/22 15:45 IMPRESSION: As above. Venous Duplex 09/15/22 15:45 IMPRESSION: No evidence of deep vein thrombosis. Laboratory Results WBC 13.7 10^3/uL (4.0-10.0) H 09/15/22 15:53 RBC 4.64 10^6/uL (4.1-5.3) 09/15/22 15:53 Hgb 12.1 g/dL (11.7-16.6) 09/15/22 15:53 Hct 41.5 % (42.0-52.0) L 09/15/22 15:53 MCV 89.4 fl (80-94) 09/15/22 15:53 MCH 26.1 pg (28.0-34.0) L 09/15/22 15:53 MCHC 29.2 g/dL (30.0-36.0) L 09/15/22 15:53 RDW 16.2 % (12.1-15.1) H 09/15/22 15:53 Plt Count 323 10^3/cmm (130-400) 09/15/22 15:53 MPV 10.9 fL (7.4-10.4) H 09/15/22 15:53 Neut % (Auto) 76.6 % 09/15/22 15:53 Lymph % (Auto) 12.5 % 09/15/22 15:53 [place] % (Auto) 7.5 % 09/15/22 15:53 Eos % (Auto) 2.0 % 09/15/22 15:53 Baso % (Auto) 0.4 % 09/15/22 15:53 Neut # (Auto) 10.46 10^3/uL (1.8-7.7) H 09/15/22 15:53 Lymph # (Auto) 1.7 10^3/uL (0.8-4.8) 09/15/22 15:53 [place] # (Auto) 1.0 10^3/uL (0.2-0.9) H 09/15/22 15:53 Eos # (Auto) 0.3 10^3/uL (0.0-0.8) 09/15/22 15:53 Baso # (Auto) 0.1 10^3/uL (0.0-0.1) 09/15/22 15:53 Nucleated RBC % (auto) 0 % 09/15/22 15:53 Nucleated RBCs # 0.0 /100WBC 09/15/22 15:53 Sodium 140 mmol/L (136-145) 09/18/22 02:43 Potassium 4.2 mmol/L (3.5-5.1) 09/18/22 02:43 Chloride 102 mmol/L (98-107) 09/18/22 02:43 Carbon Dioxide 29 mmol/L (22-29) 09/18/22 02:43 Anion Gap 13.2 (5-19) 09/18/22 02:43 BUN 8 mg/dL (6-20) 09/18/22 02:43 Creatinine 0.8 mg/dL (0.7-1.2) 09/18/22 02:43 GFR Calculation 106.0 mL/min (90-130) 09/18/22 02:43 Glucose 108 mg/dL (65-115) 09/18/22 02:43 Estimat Average Glucose 108 09/16/22 05:06 Hemoglobin A1c 5.4 % (4.0-6.0) 09/16/22 05:06 Calculated Osmolality 289 mOsm/kg (285-295) 09/18/22 02:43 Calcium 8.8 mg/dL (8.5-10.5) 09/18/22 02:43 Phosphorus 3.3 mg/dL (2.5-4.5) 09/16/22 05:06 Magnesium 2.0 mg/dL (1.7-2.3) 09/16/22 05:06 Total Bilirubin 0.8 mg/dL (0.15-1.2) 09/18/22 02:43 AST 19 U/L (0-40) 09/18/22 02:43 ALT 24 U/L (0-41) 09/18/22 02:43 Alkaline Phosphatase 84 U/L (40-130) 09/18/22 02:43 NT-Pro-B Natriuret Pep 130 pg/mL (0-125) H 09/16/22 05:06 Total Protein 6.3 g/dL (6.6-8.7) L 09/18/22 02:43 Albumin 3.4 g/dL (3.5-5.2) L 09/18/22 02:43 Globulin 2.9 g/dL (1.3-4.6) 09/18/22 02:43 Triglycerides 85 mg/dL (0-150) 09/16/22 05:06 Cholesterol 177 mg/dL (0-200) 09/16/22 05:06 LDL Cholesterol, Calc 93 mg/dL (50-129) 09/16/22 05:06 HDL Cholesterol 67 mg/dL (60-100) 09/16/22 05:06 LDL/HDL Ratio 1.39 RATIO (0.00-3.22) 09/16/22 05:06 Cholesterol/HDL Ratio 2.64 mg/dL (1.0-5.00) 09/16/22 05:06 Vancomycin Trough 10.4 ug/mL (10-15) 09/17/22 09:08 Vitals Last Vital Signs Temp 98.0 F 09/18/22 07:56 Pulse 96 09/18/22 07:56 Resp 18 09/18/22 07:56 BP 150/97 09/18/22 08:26 Pulse Ox 94 09/18/22 07:56 O2 Del Method Room Air 09/18/22 07:56 Discharge Plan Discharge Patient Disposition: Home Condition: Stable Prescriptions: New hydrochlorothiazide 25 mg Tablet 25 mg PO DAILY Qty: 30 0RF Bactrim 400-80 mg tablet 1 tab PO BID 7 Days Qty: 14 0RF Continued lisinopril 20 mg tablet 20 mg PO DAILY Qty: 90 0RF Tums 200 mg calcium (500 mg) Tablet,Chewable 200 mg PO BID PRN (Reason: Indigestion) Discharge Orders: Discharge Order (Routine); Ordered 09/18/22 Ordered By: Omar Arteaga Referrals: Iain Branch MD [Primary Care Provider] - (message sent to [facility]) Discharge Diet: Usual diet Discharge Activity: Resume usual activity Patient Instructions: Cellulitis, Sulfamethoxazole/Trimethoprim (By mouth), Hydrochlorothiazide (By mouth), Opioid Safety Discharge Attestations Time Spent in Discharge Care*: greater than 30 min Specific Discharge Activities: educating patient, educating and/or supporting family/caregiver, discussing with pcp/other providers, discussing with piano case and bench assembler/social workers/dc planners, documenting/other paperwork and evaluating patient/reviewing data Quality Metrics Clinical Quality Measures [ No reported AMI, CVA or VTE this stay] Coding Level of Care Code Acute Code for Chg Fwd Total time (in minutes) for Discharge: 32 Diagnoses Cellulitis of left thigh L03.116 HTN, goal below 130/80 I10 Bilateral lower extremity edema R60.0 Morbidly obese E66.01
--- NOTE | 2022-09-18 12:34 | PC.NURSE ---
Prescription for bactrim and hydraclorathiazide called into [facility] pharmacy in [facility] per patient request.
== END 2022-09-18 14:07 | disposition home or self-care (01) | DRG 603 ==
LOC: ER 16:40 → CSU 18:30 → MEDSURG 20:44
PROVIDERS: Admitting Provider Family Medicine; Emergency Provider Family Medicine; PCP Family Medicine; Visit Provider Family Medicine
DX: L03.116 Cellulitis of left lower limb (principal); Z68.45 Body mass index [BMI] 70 or greater, adult; I10 Essential (primary) hypertension; E66.01 Morbid (severe) obesity due to excess calories; D50.9 Iron deficiency anemia, unspecified; Z86.718 Personal history of other venous thrombosis and embolism; Z87.440 Personal history of urinary (tract) infections
CPT/HCPCS: 36415; 76882; 80053; 80061; 80202; 83036; 83735; 83880; 84100; 85025; 87040; 93971; 96365; 96366; 96372; 99285; J1650; J3370; J3372; J3490; J7050

== ENCOUNTER → 2023-01-19 14:48 | Outpatient (BNVA) | payer BC, SELFPAY | PROVIDERS: PCP Nurse Practitioner Family; Visit Provider Nurse Practitioner Family | DX: J06.9 Acute upper respiratory infection, unspecified (principal) | CPT/HCPCS: 87426 ==

== ENCOUNTER 2023-03-28 07:32 | Day surgery (SDC) | payer BC, MEDICAID, SELFPAY ==
[2023-03-28] VITALS (11 sets, daily range): BP systolic 103–205; BP diastolic 84–119; PULSE 93–100; RESP 12–24; TEMP 36.3–37.2; O2SAT 92–95; BMI 90.1
[2023-03-28] MEDS: sodium chloride 0.9% 1,000 ML 30 ML IV (08:02)
[2023-03-28 08:10] LABS: Glucose Point of Care 89 mg/dL (70-110)
--- NOTE | 2023-03-28 08:12 | P.HPUD_ITS ---
Surgery/Procedure H&P Update DATE OF PROCEDURE: March 28, 2023 DATE H&P PERFORMED: 03/14/23 H&P UPDATE INFORMATION: I have reviewed H&P completed within last 30 days, I have examined patient prior to procedure and No changes to prior documentation PLANNED PROCEDURE: Operation Date: 03/28/23 09:05 Proposed Procedures p 30647 Excision Mass greater than 10cm (Left Thigh),D17.9(Left) - Juan J aviles DO
[2023-03-28] MEDS: vancomycin 1,500 MG/300 ML PIGGYBACK 200 MG IV (08:46)
[2023-03-28] MEDS: lidocaine-epi 1% 20 mL INJ INJECTION (10:11)
[2023-03-28] MEDS: vancomycin 500 MG in sodium chloride 0.9% (plus) 100 ML 200 MG IV (10:52)
--- NOTE | 2023-03-28 11:05 | P.OP_ITS ---
Operative Report Date of procedure: March 28, 2023 Pre-op diagnosis: Subcutaneous mass left thigh Post-op diagnosis: same Procedure done: Excision of subcutaneous mass left thigh-excision measured 28.5 cm x 11 cm x 6.5 cm Implants: 19 [place] Sean drain Specimens removed/disposition: Excision of skin and masslike subcutaneous tissue Surgeon: Juan J Ac DO Anesthesia: General Estimated blood loss (mL): 400 Complications: None apparent Findings: No discrete mass identified but subcutaneous tissue presented in a masslike fashion Brief History: This is a very pleasant 42-year-old gentleman who presented my office with a subcutaneous mass of his left thigh. Excision was indicated. The risk and benefits were explained and documented. Procedure: The left thigh was inspected prepped and draped in the usual sterile fashion. General endotracheal intubation was achieved by the department of anesthesia. A 10 blade scalpel was used to excise excess skin overlying the masslike area of his left medial thigh. Excision measured 28.5 cm in length by 11 cm in width. The dermis was incised with electrocautery and cut mode. I then dissected down through the subcutaneous tissue with electrocautery down to a depth of 6.5 cm. No discrete mass was identified, however the subcutaneous tissue in this area was very dense and discrete. This was shelled out with electrocautery. Bleeding was controlled with electrocautery. 400 cc of blood was lost as there was apparent venous hypertension. Specimen was passed off and again measured 28.5 x 11 x 6.5 cm. Hemostasis was noted. A 19 [place] Sean drain was placed into the wound bed and came out of the skin proximally. Drain was sewn in place with 3-0 silk. The skin was closed with running 2-0 and 3-0 nylon. Patient tolerated procedure well and was wheeled in the postoperative anesthesia care unit in good condition.
--- NOTE | 2023-03-28 12:09 | SUR.PHASEI ---
1904 Pt and family member educated on emptying the ZEESHAN drain. Both state understanding. ZEESHAN drain emptied of 50cc serosanginous drainage.
--- NOTE | 2023-03-28 12:11 | ANES.PREANE2 ---
Pre-Anesthetic Assessment Height/Weight: Height 1.75 m Weight 276.691 kg Temp Pulse Resp BP Pulse Ox O2 Del Method O2 Flow Rate 97.7 F 98 18 170/104 94 Room Air 3 03/28/23 12:00 03/28/23 12:00 03/28/23 12:00 03/28/23 12:00 03/28/23 12:00 03/28/23 12:00 03/28/23 11:54 Operation Date: 03/28/23 09:05 Proposed Procedures p [id number] Excision Mass greater than 10cm (Left Thigh),D17.9(Left) - Juan J Ac DO Familial anesthetic complications: none Was Beta Devaughn taken within 24 hours: N/A Was Clonidine taken within 24 hours: N/A Last intake: Intake Last Liquid Date 03/27/23 Last Liquid Time 21:00 Last Solid Date 03/27/23 Last Solid Time 19:00 Social No alcohol and No tobacco Exam alert, oriented x 3, clear to auscultation bilaterally and regular rate & rhythm Airway Submandibular: within normal limits Cervical ROM: within normal limits Mallampati: Class II Dentition: full Pulmonary Sleep Apnea CV/HEM Anemia and Hypertension Metabolic Diabetes Mellitus and Morbid Obesity Anesthetic Plan ASA status: 3 Anesthesia: General Medications/Allergies Home Medications Medication Instructions Recorded Confirmed Last Taken Type calcium carbonate 200 mg calcium 200 mg PO BID PRN Indigestion 09/15/22 03/28/23 2 Weeks Ago History (500 mg) chewable tablet (Tums) ~03/14/23 albuterol sulfate 90 mcg/actuation 2 puff inhalation QID PRN 01/19/23 03/28/23 03/27/23 Rx aerosol inhaler (ProAir HFA) shortness of breath or wheezing 30 days #8.5 grams albuterol sulfate 5 mg/mL(0.5 %) 5 mg inhalation Q6H PRN shortness 02/14/23 03/28/23 03/27/23 Rx solution for nebulization of breath or wheezing #600 mL nebulizer #1 ea 02/14/23 03/28/23 Unknown Rx nebulizer accessories #1 ea 02/14/23 03/28/23 Unknown Rx budesonide-formoterol HFA 160 1 inh inhalation BID #10.2 grams 03/08/23 03/28/23 03/27/23 Rx mcg-4.5 mcg/actuation aerosol inhaler (Symbicort) furosemide 20 mg tablet (Lasix) 20 mg PO DAILY #90 tabs 03/08/23 03/28/23 03/27/23 Rx lisinopril 20 mg tablet 20 mg PO DAILY #90 tabs 03/08/23 03/28/23 03/27/23 Rx metformin 500 mg tablet 500 mg PO DAILY 03/27/23 03/28/23 03/27/23 History topiramate 25 mg tablet 25 mg PO DAILY 03/27/23 03/28/23 03/27/23 History docusate sodium 100 mg capsule 100 mg PO BID #14 caps 03/28/23 Unknown Rx (Colace) hydrocodone 10 mg-acetaminophen 1 tab PO Q4H PRN pain #30 tabs 03/28/23 Unknown Rx 325 mg tablet Allergies Allergy/AdvReac Type Severity Reaction Status Date / Time amlodipine Allergy nose bleeds Verified 03/28/23 07:56 Penicillins Allergy unknown Verified 03/28/23 07:56 paxlovid Allergy ADR-Chest Uncoded 03/14/23 13:10 Pain Current Medications Generic Name Dose Route Start Last Admin Trade Name Freq PRN Reason Stop Dose Admin Sodium Chloride 1,000 mls @ 30 mls/hr 03/28/23 07:45 03/28/23 10:52 Sodium Chloride 0.9% IV 03/29/23 07:44 Infused .Q24H POOJA Infusion PFSH Anesthesia Medical History COVID-19 Shortness of breath COVID Upper respiratory infection Takes iron supplements Iron deficiency anemia Acute bilateral otitis media Vertigo Urgency incontinence Morbidly obese Elevated WBC count Urinary tract infection in male Medication management Hypertension screen Osteophyte, left knee Knee pain, left Cellulitis DVT, lower extremity Strain of left knee Essential hypertension Conjunctivitis Family History Father , UNKNOWN AGE Automobile accident Social History Smoking and tobacco/nicotine status: never used tobacco/nicotine Alcohol intake: current Alcohol intake frequency: holidays/special occasions only Substance/Drug Use: never Marital status: Single Current occupational status: employed 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
[2023-03-28] MEDS: HYDROcodone-acetaminophen 10-325 mg Tablet 1 TAB PO (12:26)
--- NOTE | 2023-03-28 15:49 | ANE.PACU2 ---
Inpatient post-anesthesia follow up: Airway intact: Yes Vital signs: Temperature 97.7 F Pulse Rate 94 Respiratory Rate 18 Blood Pressure 120/90 Pulse Oximetry 93 Oxygen Delivery Me thod Room Air Oxygen Flow Rate 3 Fraction of Inspir ed Oxygen Hydration adequate: Yes Nausea and vomiting: No Pain level: 2 Mental status: Baseline
== END 2023-03-28 12:50 | disposition home or self-care (01) ==
PROVIDERS: PCP Nurse Practitioner Family; Visit Provider Surgery
PROC: (CPT 11406; principal; 2023-03-28 08:55)
DX: R22.42 Localized swelling, mass and lump, left lower limb (principal); E66.01 Morbid (severe) obesity due to excess calories; Z68.45 Body mass index [BMI] 70 or greater, adult; Z86.718 Personal history of other venous thrombosis and embolism
CPT/HCPCS: 11406; 12036; 36416; 82962; 88307; J0330; J1100; J2405; J2704; J3010; J3370; J3490; J7030

== ENCOUNTER 2023-09-28 15:31 | Oncology outpatient (recurring) (ONCR) | payer BC, MEDICAID, SELFPAY ==
[2023-09-28 17:11] LABS: Basophils % 0.2 %; Eosinophils # 0.3 10^3/uL (0.0-0.8); Eosinophils % 1.4 %; Hematocrit 42.4 % (37-53); Lymphocytes # 2.3 10^3/uL (0.8-4.8); Lymphocytes % 13.5 %; Mean Corpuscular HGB Conc 31.1 g/dL (30-55); Mean Corpuscular Hemoglobin 26.7 pg (27-33); Mean Corpuscular Volume 85.7 fl (82-101); Mean Platelet Volume 10.6 fL (7.4-10.4); Monocytes # 0.8 10^3/uL (0.2-0.9); Monocytes % 4.7 %; Neutrophils # 13.78 10^3/uL (1.8-7.7); Neutrophils % 79.6 %; Nucleated Red Blood Cells % 0 %; Platelet Count 412 10^3/cmm (157-399); Red Blood Count 4.95 10^6/uL (3.85-5.65); White Blood Count 17.33 10^3/uL (3.29-11.43)
[2023-09-28 17:14] LABS: Erythrocyte Sedimentation Rate 108 mm/hr (0-10)
[2023-09-28 17:24] LABS: LAB Peripheral Smear Sent for Review
[2023-09-28 17:31] LABS: Alanine Aminotransferase 51 U/L (0-41); Alkaline Phosphatase 85 U/L (40-130); Anion Gap 17.3 (5-19); Aspartate Amino Transferase 28 U/L (0-40); Blood Urea Nitrogen 15 mg/dL (6-20); C Reactive Protein 41.9 mg/L (0.0-4.9); Calcium 8.9 mg/dL (8.5-10.5); Carbon Dioxide 23 mmol/L (22-29); Chloride 99 mmol/L (98-107); Creatinine Clr Calc Pharmacy 237.0168; Ferritin 226 ng/mL (30-400); Globulin 3.9 g/dL (1.3-4.6); Glomerular Filtration Rate 105.5 mL/min (90-130); Glucose 111 mg/dL (65-115); Iron 38 ug/dL (59-158); Lactate Dehydrogenase 157 U/L (135-225); Osmolality Calculated 282 mOsm/kg (285-295); Percent Saturation 14.3 % (20-50); Potassium 4.3 mmol/L (3.5-5.1); Sodium 135 mmol/L (136-145); Total Bilirubin 0.5 mg/dL (0.15-1.2); Total Iron Binding Capacity 265 mcg/dl; Total Protein 7.9 g/dL (6.6-8.7); Unsaturated Iron Binding 227 ug/dL (112-347)
[2023-10-06 14:09] LABS: JAK2 V617 Block Specimen ID BLOOD; JAK2 V617 Mutation NOT DETECTED; JAK2 V617 Specimen Source BLOOD
== END 2023-10-14 23:59 | disposition home or self-care (01) ==
PROVIDERS: PCP Nurse Practitioner Family; Visit Provider Internal Medicine Medical Oncology
DX: D72.829 Elevated white blood cell count, unspecified (principal); D50.9 Iron deficiency anemia, unspecified; D64.9 Anemia, unspecified
CPT/HCPCS: 36415; 80053; 81270; 82728; 83540; 83550; 83615; 85025; 85651; 86140; 88374

== ENCOUNTER 2023-10-24 12:48 | Oncology outpatient (recurring) (ONCR) | payer BC, MEDICAID, SELFPAY ==
--- NOTE | 2023-10-24 13:00 | CTR_ITS ---
PROCEDURE INFORMATION: Exam: CT Abdomen And Pelvis With Contrast Exam date and time: 10/24/2023 2:18 PM Age: 43 years old Clinical indication: Abnormal findings; Abnormal lab test; Elevated wbc; Patient HX: Elevated white blood cells count and sed rate. Anemia, SOB; Additional info: Elevated white blood cell count and sed rate; Anemia; SOB TECHNIQUE: Imaging protocol: Computed tomography of the abdomen and pelvis with contrast. Radiation optimization: All CT scans at this facility use at least one of these dose optimization techniques: automated exposure control; mA and/or kV adjustment per patient size (includes targeted exams where dose is matched to clinical indication); or iterative reconstruction. Contrast material: OMNI 350; Contrast volume: 100 ml; Contrast route: INTRAVENOUS (IV); COMPARISON: US soft tissue/extremity [id number] 09/15/2022 4:53 PM RADIATION DOSE METRICS: Total DLP (mGy-cm): 2788.03 FINDINGS: Liver: Normal. No mass. Gallbladder and biliary ducts: Normal. No calcified stones. No ductal dilation. Pancreas: Normal. No ductal dilation. Spleen: Normal. No splenomegaly. Adrenal glands: Normal. No mass. Kidneys and ureters: Normal. No hydronephrosis. Stomach and bowel: Unremarkable. No obstruction. No mucosal thickening. Appendix: No evidence of appendicitis. Intraperitoneal space: Unremarkable. No free air. No significant fluid collection. Vasculature: Unremarkable. No abdominal aortic aneurysm. Lymph nodes: Unremarkable. No enlarged lymph nodes. Urinary bladder: Unremarkable as visualized. Reproductive: Unremarkable as visualized. Bones/joints: No acute fracture. Soft tissues: Unremarkable. CT/CT abdomen pelvis w con* [id number] IMPRESSION: No acute findings.
[2023-10-24] MEDS: iohexol 350 mg/mL 500 mL Btl (per mL) IV (14:00)
[2023-10-24] MEDS: iohexol 350 mg/mL 500 mL Btl (per mL) PO (14:00)
== END 2023-11-13 23:59 | disposition home or self-care (01) ==
LOC: RAD 12:48 → ONCMED 10-30 06:59
PROVIDERS: PCP Nurse Practitioner Family; Visit Provider Nurse Practitioner Family
DX: D72.829 Elevated white blood cell count, unspecified (principal); R06.02 Shortness of breath; D50.9 Iron deficiency anemia, unspecified; R70.0 Elevated erythrocyte sedimentation rate
CPT/HCPCS: 74177

== ENCOUNTER 2023-11-17 07:42 | Oncology outpatient (recurring) (ONCR) | payer BC, MEDICAID, SELFPAY ==
[2023-11-17 08:08] LABS: Basophils # 0.1 10^3/uL (0.0-0.1); Basophils % 0.3 %; Eosinophils # 0.6 10^3/uL (0.0-0.8); Eosinophils % 3.8 %; Hematocrit 40.9 % (37-53); Lymphocytes # 1.5 10^3/uL (0.8-4.8); Lymphocytes % 10.1 %; Mean Corpuscular HGB Conc 30.6 g/dL (30-55); Mean Corpuscular Volume 88.3 fl (82-101); Mean Platelet Volume 10.6 fL (7.4-10.4); Monocytes # 0.8 10^3/uL (0.2-0.9); Monocytes % 5.8 %; Neutrophils # 11.38 10^3/uL (1.8-7.7); Neutrophils % 79.4 %; Nucleated Red Blood Cells % 0 %; Platelet Count 328 10^3/cmm (157-399); Red Blood Count 4.63 10^6/uL (3.85-5.65); Red Cell Distribution Width 15.9 % (12.1-15.1); White Blood Count 14.35 10^3/uL (3.29-11.43)
[2023-11-17 08:23] LABS: Alanine Aminotransferase 27 U/L (0-41); Albumin Level 3.5 g/dL (3.5-5.2); Alkaline Phosphatase 79 U/L (40-130); Anion Gap 15.9 (5-19); Aspartate Amino Transferase 20 U/L (0-40); Blood Urea Nitrogen 9 mg/dL (6-20); Calcium 8.8 mg/dL (8.5-10.5); Carbon Dioxide 22 mmol/L (22-29); Chloride 100 mmol/L (98-107); Ferritin 214 ng/mL (30-400); Globulin 3.6 g/dL (1.3-4.6); Glomerular Filtration Rate 123.1 mL/min (90-130); Glucose 104 mg/dL (65-115); Iron 37 ug/dL (59-158); Osmolality Calculated 277 mOsm/kg (285-295); Percent Saturation 16.3 % (20-50); Potassium 3.9 mmol/L (3.5-5.1); Sodium 134 mmol/L (136-145); Total Bilirubin 0.5 mg/dL (0.15-1.2); Total Iron Binding Capacity 226 mcg/dl; Total Protein 7.1 g/dL (6.6-8.7); Unsaturated Iron Binding 189 ug/dL (112-347)
== END 2023-12-14 23:59 | disposition home or self-care (01) ==
PROVIDERS: Internal Medicine Medical Oncology; PCP Nurse Practitioner Family; Visit Provider Internal Medicine Hematology & Oncology
DX: D50.9 Iron deficiency anemia, unspecified
CPT/HCPCS: 36415; 80053; 82728; 83540; 83550; 85025

== ENCOUNTER 2023-12-13 10:03 | Day surgery (SDC) | payer BC, MEDICAID, SELFPAY ==
[2023-12-13 10:20] VITALS: BMI 74.0
[2023-12-13 10:32] VITALS: BP 157/74; PULSE 101; RESP 22; TEMP 36.6; O2SAT 96
--- NOTE | 2023-12-13 10:32 | P.ANESASSM_ITS ---
Pre-Anesthetic Assessment Height/Weight: Height 5 ft 10 in Weight 516 lb Preop Diagnosis: Screening colonoscopy Operation Date: 12/13/23 11:30 Proposed Procedures p EGD - 42082,29552, G0105, D50.9, K21.9(Not Applicable) - Juan J Ac DO s Colonoscopy(Not Applicable) - Juan J Ac DO Was Beta Devaughn taken within 24 hours: N/A Was Clonidine taken within 24 hours: N/A Social No alcohol and No tobacco Exam alert, oriented x 3, clear to auscultation bilaterally and regular rate & rhythm Airway Submandibular: within normal limits Cervical ROM: within normal limits Mallampati: Class III Dentition: full Anesthetic Plan ASA status: 3 Anesthesia: MAC Other: No prior issues with anesthesia Completed bowel prep History of hypertension on lisinopril?hydrochlorothiazide YUNIOR, no CPAP Patient states that he takes phentermine, naltrexone and metformin for weight loss. Has lost over 120 pounds since March BMI 74, 516 pounds currently Patient is able to ambulate and perform ADLs Plan for MAC anesthetic with possible conversion to general if needed Medications/Allergies Home Medications Medication Instructions Recorded Confirmed Last Taken Type lisinopril 20 mg tablet 20 mg PO DAILY #90 tabs 03/08/23 12/13/23 12/12/23 Rx phentermine 15 mg capsule 15 mg PO DAILY 05/03/23 12/13/23 12/05/23 History hydrochlorothiazide 50 mg tablet 50 mg PO DAILY 09/28/23 12/13/23 12/12/23 History metformin 1,000 mg tablet 1,000 mg PO DAILY 09/28/23 12/13/23 12/11/23 History naltrexone 50 mg tablet 50 mg PO DAILY 09/28/23 12/13/23 12/11/23 History topiramate 25 mg tablet 25 mg PO BID 09/28/23 12/13/23 12/11/23 History pantoprazole 40 mg tablet,delayed 40 mg PO BID 6 weeks #84 tabs 10/09/23 12/13/23 12/11/23 Rx release (Protonix) loratadine 10 mg tablet (Claritin) 10 mg PO DAILY #30 tabs 11/15/23 12/13/23 12/11/23 Rx albuterol sulfate 1.25 mg/3 mL 1.25 mg (3 mL) inhalation QID PRN 10/09/24 10/30/24 10/27/24 Rx solution for nebulization shortness of breath or wheezing #90 mL albuterol sulfate 90 mcg/actuation 2 puff inhalation QID PRN 11/22/23 12/13/23 12/10/23 Rx aerosol inhaler shortness of breath or wheezing 30 days #8.5 grams budesonide-formoterol HFA 160 1 inh inhalation BID #10.2 grams 11/29/23 12/13/23 12/11/23 Rx mcg-4.5 mcg/actuation aerosol inhaler (Symbicort) Allergies Allergy/AdvReac Type Severity Reaction Status Date / Time amlodipine Allergy nose bleeds Verified 12/11/23 11:41 nirmatrelvir [From Paxlovid] Allergy ADR-Chest Verified 12/11/23 11:41 Pain Penicillins Allergy unknown Verified 12/11/23 11:41 ritonavir [From Paxlovid] Allergy ADR-Chest Verified 12/11/23 11:41 Pain PFSH Anesthesia Medical History Pneumonia Elevated WBC count COVID-19 Shortness of breath Iron deficiency anemia Morbidly obese Osteophyte, left knee Knee pain, left Cellulitis DVT, lower extremity Essential hypertension Conjunctivitis Surgical History History of colonoscopy (2009) History of esophagogastroduodenoscopy (EGD) (2009) History of excision of mass (03/28/23) Left thigh mass Hx of hand surgery right hand/pinky History of tonsillectomy Family History Father , UNKNOWN AGE Automobile accident Mother Lung cancer Social History Smoking and tobacco/nicotine status: never used tobacco/nicotine Alcohol intake: current Alcohol intake frequency: holidays/special occasions only Substance/Drug Use: never Marital status: Single Current occupational status: employed 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
[2023-12-13] MEDS: sodium chloride 0.9% 1,000 ML 30 ML IV (10:39)
[2023-12-13 10:50] LABS: Glucose Point of Care 101 mg/dL (70-110)
--- NOTE | 2023-12-13 11:55 | PM.HP ---
Providers/Chief Complaint Primary Care Provider: CODEY Espinal Chief Complaint: D50.9 History of Present Illness Landen Luis Jr is a 43 year old male Review of Systems General: Reports: 10 or more systems reviewed and unremarkable except in HPI and below Medications/Allergies Home Medications Medication Instructions Recorded Confirmed Last Taken Type lisinopril 20 mg tablet 20 mg PO DAILY #90 tabs 03/08/23 12/13/23 12/12/23 Rx phentermine 15 mg capsule 15 mg PO DAILY 05/03/23 12/13/23 12/05/23 History hydrochlorothiazide 50 mg tablet 50 mg PO DAILY 09/28/23 12/13/23 12/12/23 History metformin 1,000 mg tablet 1,000 mg PO DAILY 09/28/23 12/13/23 12/11/23 History naltrexone 50 mg tablet 50 mg PO DAILY 09/28/23 12/13/23 12/11/23 History topiramate 25 mg tablet 25 mg PO BID 09/28/23 12/13/23 12/11/23 History pantoprazole 40 mg tablet,delayed 40 mg PO BID 6 weeks #84 tabs 10/09/23 12/13/23 12/11/23 Rx release (Protonix) loratadine 10 mg tablet (Claritin) 10 mg PO DAILY #30 tabs 11/15/23 12/13/23 12/11/23 Rx albuterol sulfate 1.25 mg/3 mL 1.25 mg (3 mL) inhalation QID PRN 11/22/23 12/13/23 12/10/23 Rx solution for nebulization shortness of breath or wheezing #90 mL albuterol sulfate 90 mcg/actuation 2 puff inhalation QID PRN 11/22/23 12/13/23 12/10/23 Rx aerosol inhaler shortness of breath or wheezing 30 days #8.5 grams budesonide-formoterol HFA 160 1 inh inhalation BID #10.2 grams 11/29/23 12/13/23 12/11/23 Rx mcg-4.5 mcg/actuation aerosol inhaler (Symbicort) Allergies Allergy/AdvReac Type Severity Reaction Status Date / Time amlodipine Allergy nose bleeds Verified 12/11/23 11:41 nirmatrelvir [From Paxlovid] Allergy ADR-Chest Verified 12/11/23 11:41 Pain Penicillins Allergy unknown Verified 12/11/23 11:41 ritonavir [From Paxlovid] Allergy ADR-Chest Verified 12/11/23 11:41 Pain PFSH Acute PFSH: Medical History Pneumonia Elevated WBC count COVID-19 Shortness of breath Iron deficiency anemia Morbidly obese Osteophyte, left knee Knee pain, left Cellulitis DVT, lower extremity Essential hypertension Conjunctivitis Surgical History History of colonoscopy (2009) History of esophagogastroduodenoscopy (EGD) (2009) History of excision of mass (03/28/23) Left thigh mass Hx of hand surgery right hand/pinky History of tonsillectomy Family History Father , UNKNOWN AGE Automobile accident Mother Lung cancer Social History Smoking and tobacco/nicotine status: never used tobacco/nicotine Alcohol intake: current Alcohol intake frequency: holidays/special occasions only Substance/Drug Use: never Marital status: Single Current occupational status: employed 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
[2023-12-13 12:22] VITALS: BP 116/77; PULSE 97; RESP 18; TEMP 36.2; O2SAT 99
[2023-12-13 12:32] VITALS: BP 120/68; PULSE 88; RESP 18; O2SAT 99
[2023-12-13 12:43] VITALS: BP 124/73; PULSE 85; RESP 18; O2SAT 98
--- NOTE | 2023-12-13 12:54 | ANE.PACU2 ---
Inpatient post-anesthesia follow up: Airway intact: Yes Vital signs: Temperature 97.1 F Pulse Rate 85 Respiratory Rate 18 Blood Pressure 124/73 Pulse Oximetry 98 Oxygen Delivery Me thod Room Air Oxygen Flow Rate Fraction of Inspir ed Oxygen Hydration adequate: Yes Nausea and vomiting: No Pain level: 1 Mental status: Baseline
== END 2023-12-13 12:55 | disposition home or self-care (01) ==
PROVIDERS: PCP Nurse Practitioner Family; Visit Provider Surgery
PROC: 0DJ08ZZ Inspection of Upper Intestinal Tract, Via Natural or Artificial Opening Endoscopic (ICD-10-PCS; CPT 43235; principal; 2023-12-13 11:30)
PROC: 0DJD8ZZ Inspection of Lower Intestinal Tract, Via Natural or Artificial Opening Endoscopic (ICD-10-PCS; CPT 45378; 2023-12-13 11:30)
DX: D50.9 Iron deficiency anemia, unspecified (principal); K21.9 Gastro-esophageal reflux disease without esophagitis; E66.01 Morbid (severe) obesity due to excess calories; Z68.45 Body mass index [BMI] 70 or greater, adult; Z86.718 Personal history of other venous thrombosis and embolism; I10 Essential (primary) hypertension; G47.33 Obstructive sleep apnea (adult) (pediatric); K57.30 Diverticulosis of large intestine without perforation or abscess without bleeding
CPT/HCPCS: 36416; 43239; 45378; 82962; 88305; J2704; J7030

== ENCOUNTER 2024-01-02 07:52 | Day surgery (SDC) | payer BC, MEDICAID, SELFPAY ==
--- NOTE | 2023-12-25 11:40 | SUR.PREOP ---
Upon reviewing current medications with patient during telephone preop patient stated he took his phentermine this morning at 0600. After discussing with Anesthesia and based on protocol, patient will need to be rescheduled for surgery as medication will need to be held for at least 7 days.
[2024-01-02] VITALS (12 sets, daily range): BP systolic 61–153; BP diastolic 35–92; PULSE 77–99; RESP 13–24; TEMP 36.2–37; O2SAT 90–98; BMI 73.4
--- NOTE | 2024-01-02 09:03 | P.ANESASSM_ITS ---
Pre-Anesthetic Assessment Height/Weight: Height 1.78 m Weight 232.239 kg Temp Pulse Resp BP Pulse Ox O2 Del Method 97.2 F L 95 17 153/92 95 Room Air 01/02/24 08:14 01/02/24 08:14 01/02/24 08:14 01/02/24 08:14 01/02/24 08:14 01/02/24 08:15 Operation Date: 01/02/24 09:45 Proposed Procedures p excison of sub q mass left thigh 99909,R22.9(Left) - Juan J Ac DO Familial anesthetic complications: None Was Beta Devaughn taken within 24 hours: N/A Was Clonidine taken within 24 hours: N/A Last intake: Intake Last Liquid Date 01/01/24 Last Liquid Time 19:00 Last Solid Date 01/01/24 Last Solid Time 18:00 Social No alcohol and No tobacco Exam alert, oriented x 3, clear to auscultation bilaterally and regular rate & rhythm Airway Mallampati: Class IV Dentition: full Comments: Comments: Morris grade I airway in march with additional 100 lbs of body weight, noted to have stiff neck and poor mouth opening during placement Pulmonary Sleep Apnea CV/HEM Hypertension GI Gastroesophageal Reflux Disease Metabolic Morbid Obesity Anesthetic Plan ASA status: 4 Anesthesia: General Risk of > 500 ml blood loss (7ml/kg in children): No Medications/Allergies Home Medications Medication Instructions Recorded Confirmed Last Taken Type lisinopril 20 mg tablet 20 mg PO DAILY #90 tabs 03/08/23 01/02/24 01/01/24 Rx phentermine 15 mg capsule 15 mg PO DAILY 05/03/23 01/01/24 12/25/23 06:00 History hydrochlorothiazide 50 mg tablet 50 mg PO DAILY 09/28/23 01/02/24 01/01/24 History metformin 1,000 mg tablet 1,000 mg PO DAILY 09/28/23 01/02/24 01/01/24 History naltrexone 50 mg tablet 50 mg PO DAILY 09/28/23 01/02/24 01/01/24 History topiramate 25 mg tablet 25 mg PO BID 09/28/23 01/02/24 01/01/24 History pantoprazole 40 mg tablet,delayed 40 mg PO BID 6 weeks #84 tabs 10/09/23 01/02/24 01/01/24 Rx release (Protonix) albuterol sulfate 90 mcg/actuation 2 puff inhalation QID PRN 11/22/23 01/01/24 12/24/23 18:00 Rx aerosol inhaler shortness of breath or wheezing 30 days #8.5 grams budesonide-formoterol HFA 160 1 inh inhalation BID #10.2 grams 11/29/23 01/01/24 12/11/23 Rx mcg-4.5 mcg/actuation aerosol inhaler (Symbicort) albuterol sulfate 1.25 mg/3 mL 1.25 mg (3 mL) inhalation QID PRN 12/18/23 01/01/24 12/24/23 20:00 Rx solution for nebulization shortness of breath or wheezing #90 mL Allergies Allergy/AdvReac Type Severity Reaction Status Date / Time amlodipine Allergy nose bleeds Verified 12/25/23 11:29 nirmatrelvir [From Paxlovid] Allergy ADR-Chest Verified 12/25/23 11:29 Pain Penicillins Allergy unknown Verified 12/25/23 11:29 ritonavir [From Paxlovid] Allergy ADR-Chest Verified 12/25/23 11:29 Pain PFSH Anesthesia Medical History Pneumonia Elevated WBC count COVID-19 Shortness of breath Iron deficiency anemia Morbidly obese Osteophyte, left knee Knee pain, left Cellulitis DVT, lower extremity Essential hypertension Conjunctivitis Surgical History History of colonoscopy (2009) History of esophagogastroduodenoscopy (EGD) (2009) History of excision of mass (03/28/23) Left thigh mass Hx of hand surgery right hand/pinky History of tonsillectomy Family History Father , UNKNOWN AGE Automobile accident Mother Lung cancer Social History Smoking and tobacco/nicotine status: never used tobacco/nicotine Alcohol intake: current Alcohol intake frequency: holidays/special occasions only Substance/Drug Use: never Marital status: Single Current occupational status: employed 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
[2024-01-02] MEDS: sodium chloride 0.9% 1,000 ML 30 ML IV (09:04)
--- NOTE | 2024-01-02 10:13 | W.PM.OPSUD ---
Surgery/Procedure H&P Update DATE OF PROCEDURE: January 02, 2024 DATE H&P PERFORMED: 12/04/23 H&P UPDATE INFORMATION: I have reviewed H&P completed within last 30 days, I have examined patient prior to procedure and No changes to prior documentation PLANNED PROCEDURE: Operation Date: 01/02/24 09:45 Proposed Procedures p excison of sub q mass left thigh 50931,R22.9(Left) - Juan J Ac DO
[2024-01-02] MEDS: vancomycin 2,000 MG/400 ML PIGGYBACK 200 MG IV (10:21)
--- NOTE | 2024-01-02 12:32 | P.OP_ITS ---
Operative Report Date of procedure: January 02, 2024 Surgeon: Juan J Ac DO Procedure: Pre-op diagnosis: Subcutaneous mass left thigh Post-op diagnosis: same Procedure done: Excision of subcutaneous mass left thigh-excision measured 32 cm x 15 cm x 9 cm Implants: 19 [place] Sean drain Specimens removed/disposition: Excision of skin and masslike subcutaneous tissue Surgeon: Juan J Ac DO Anesthesia: General Estimated blood loss (mL): 200 Complications: None apparent Findings: No discrete mass identified but subcutaneous tissue presented in a masslike fashion Brief History: This is a very pleasant 42-year-old gentleman who presented my office with a recurrent subcutaneous mass of his left thigh. I previously resected skin and subcutaneous fat with overlying dermal scar and underlying myxoid degeneration that was very edematous. Due to the patient's sheer size, I was not not able to remove the entire affected area. This is a discretely enlarged and problematic area for him that causes difficulty walking and inability to wear some pants. He has lost about 120 pounds since then and the remaining area of concern in his left thigh has become more defined. It has also gotten larger over the period of time. Excision was indicated. The risks and benefits were explained and documented. Procedure: The left thigh was inspected prepped and draped in the usual sterile fashion. General endotracheal intubation was achieved by the department of anesthesia. A 10 blade scalpel was used to excise excess skin overlying the masslike area of his left medial thigh. Excision measured 32 cm in length by 15 cm in width. The dermis was incised with electrocautery and cut mode. I then dissected down through the subcutaneous tissue with electrocautery down to a depth of 9 cm. No discrete mass was identified, however the subcutaneous tissue in this area was very dense and discrete. This was shelled out with electrocautery. Bleeding was controlled with electrocautery. 200 cc of blood was lost as there was apparent venous hypertension. Specimen was passed off and again measured 32 cm x 15 cm x 9 cm. Hemostasis was noted. A 19 [place] Sean drain was placed into the wound bed and came out of the skin proximally. Drain was sewn in place with 3-0 silk. This approximated with interrupted 2-0 and 3-0 nylon's. The skin was closed with running 2-0 and 3-0 nylon. Patient tolerated procedure well and was wheeled in the postoperative anesthesia care unit in good condition.
[2024-01-02] MEDS: neomycin-poly-bacitracin oint 28 gm 1 APPLIC TOPICAL (13:29)
--- NOTE | 2024-01-02 13:57 | PC.NURSE ---
1350 - Adrien, SILK WINDING MACHINE OPERATOR notified of pts blood pressure - SILK WINDING MACHINE OPERATOR at side to assess
[2024-01-02] MEDS: ePHEDrine 50 mg/mL Inj 25 MG IM (14:05)
[2024-01-02] MEDS: HYDROcodone-acetaminophen 7.5-325 mg Tablet 1 TAB PO (15:08)
--- NOTE | 2024-01-02 15:30 | ANE.PACU2 ---
Inpatient post-anesthesia follow up: Airway intact: Yes Vital signs: Temperature 97.8 F Pulse Rate 80 Respiratory Rate 18 Blood Pressure 127/70 Pulse Oximetry 94 Oxygen Delivery Me thod Room Air Oxygen Flow Rate 6 Fraction of Inspir ed Oxygen Hydration adequate: Yes Nausea and vomiting: No Pain level: 1 Mental status: Baseline
== END 2024-01-02 15:30 | disposition home or self-care (01) ==
PROVIDERS: PCP Nurse Practitioner Family; Visit Provider Surgery
PROC: (CPT 27337; principal; 2024-01-02 09:45)
DX: L72.0 Epidermal cyst (principal); G47.30 Sleep apnea, unspecified; I10 Essential (primary) hypertension; K21.9 Gastro-esophageal reflux disease without esophagitis; E66.01 Morbid (severe) obesity due to excess calories; Z68.45 Body mass index [BMI] 70 or greater, adult; Z79.84 Long term (current) use of oral hypoglycemic drugs; Z86.718 Personal history of other venous thrombosis and embolism
CPT/HCPCS: 27337; 88307; J1100; J1171; J2250; J2405; J2704; J3010; J3372; J3490; J7030

== ENCOUNTER 2024-01-27 18:31 | Inpatient (IN) | payer BC, MEDICAID, SELFPAY ==
[2024-01-27 18:39] VITALS: BP 124/67; PULSE 130; RESP 25; TEMP 36.5; O2SAT 96; BMI 70.1
[2024-01-27 19:14] LABS: Basophils # 0.1 10^3/uL (0.0-0.1); Basophils % 0.3 %; Eosinophils # 0.2 10^3/uL (0.0-0.8); Eosinophils % 1.1 %; Hematocrit 32.8 % (37-53); Lymphocytes # 2.3 10^3/uL (0.8-4.8); Lymphocytes % 12.3 %; Mean Corpuscular HGB Conc 30.2 g/dL (30-55); Mean Corpuscular Hemoglobin 25.8 pg (27-33); Mean Corpuscular Volume 85.6 fl (82-101); Monocytes # 1.3 10^3/uL (0.2-0.9); Monocytes % 7.2 %; Neutrophils # 14.41 10^3/uL (1.8-7.7); Neutrophils % 78.6 %; Nucleated Red Blood Cells % 0 %; Platelet Count 561 10^3/cmm (157-399); Red Blood Count 3.83 10^6/uL (3.85-5.65); Red Cell Distribution Width 15.2 % (12.1-15.1); White Blood Count 18.32 10^3/uL (3.29-11.43)
[2024-01-27 19:31] LABS: Alanine Aminotransferase 19 U/L (0-41); Albumin Level 3.4 g/dL (3.5-5.2); Alkaline Phosphatase 80 U/L (40-130); Anion Gap 18.2 (5-19); Aspartate Amino Transferase 12 U/L (0-40); Blood Urea Nitrogen 14 mg/dL (6-20); C Reactive Protein 113.2 mg/L (0.0-4.9); Calcium 9.2 mg/dL (8.5-10.5); Carbon Dioxide 19 mmol/L (22-29); Chloride 101 mmol/L (98-107); Creatinine Clr Calc Pharmacy 198.3752; Globulin 4.3 g/dL (1.3-4.6); Glomerular Filtration Rate 92.1 mL/min (90-130); Glucose 109 mg/dL (65-115); Osmolality Calculated 279 mOsm/kg (285-295); Potassium 4.2 mmol/L (3.5-5.1); Sodium 134 mmol/L (136-145); Total Bilirubin 0.3 mg/dL (0.15-1.2); Total Protein 7.7 g/dL (6.6-8.7)
[2024-01-27 19:44] LABS: Lactic Sepsis W/Reflex 2.4 mmol/L (0.5-2.2)
--- NOTE | 2024-01-27 20:51 | W.ED.WOUNDLC ---
HPI - Wound/Laceration General: Chief Complaint: Wound/Laceration Stated Complaint: left leg pain, draining black stuff, smelly Time Seen by Provider: 01/27/24 18:57 History of Present Illness: Landen Lr is a 43-year-old morbidly obese male that presents to the emergency department with a postop wound breakdown. Patient reports that mid December patient underwent a resection for a large mass from the medial posterior aspect of the left thigh. In reviewing the records it was in epidermal cyst that was resected. Patient states that he was doing well, had been recovering well. He had follow-up on January 21. At that appointment nursing staff removed the majority of patient's sutures. Over the last 48 hours patient has had progressive development of a surgical site wound. He has a left swollen thigh that is warm and red. He has necrotic tissue sloughing from the wound. Dark foul-smelling drainage present. Associated symptoms: Reports chills and fever(s) Related Data Home Medications Medication Instructions Recorded Confirmed phentermine 15 mg capsule 15 mg PO DAILY 05/03/23 01/22/24 hydrochlorothiazide 50 mg tablet 50 mg PO DAILY 09/28/23 01/22/24 metformin 1,000 mg tablet 1,000 mg PO DAILY 09/28/23 01/22/24 naltrexone 50 mg tablet 50 mg PO DAILY 09/28/23 01/22/24 topiramate 25 mg tablet 25 mg PO BID 09/28/23 01/22/24 Previous Rx's Medication Instructions Recorded lisinopril 20 mg tablet 20 mg PO DAILY #90 tabs 03/08/23 albuterol sulfate 90 mcg/actuation 2 puff inhalation QID PRN 11/22/23 aerosol inhaler shortness of breath or wheezing 30 days #8.5 grams budesonide-formoterol HFA 160 1 inh inhalation BID #10.2 grams 11/29/23 mcg-4.5 mcg/actuation aerosol inhaler (Symbicort) albuterol sulfate 1.25 mg/3 mL 1.25 mg (3 mL) inhalation QID PRN 12/18/23 solution for nebulization shortness of breath or wheezing #90 mL pantoprazole 40 mg tablet,delayed 40 mg PO BID 6 weeks #84 tabs 01/22/24 release (Protonix) Allergies Allergy/AdvReac Type Severity Reaction Status Date / Time amlodipine Allergy nose bleeds Verified 01/22/24 11:32 nirmatrelvir [From Paxlovid] Allergy ADR-Chest Verified 01/22/24 11:32 Pain Penicillins Allergy unknown Verified 01/22/24 11:32 ritonavir [From Paxlovid] Allergy ADR-Chest Verified 01/22/24 11:32 Pain Review of Systems General: Reports: 10 or more systems reviewed and unremarkable except in HPI and below Const: Reports: fever(s), chills and fatigue; Denies: change in weight Eyes: Denies: change in vision ENMT: Denies: odynophagia Card: Denies: chest pain Resp: Denies: dyspnea GI: Denies: abdominal pain, dysphagia or hematochezia : Denies: dysuria Skin/Breast: Denies: rash, nipple discharge or breast mass Neuro: Denies: seizure-like activity Armin/Lymph: Denies: easy bruising PFSH ED PFSH: Medical History Pneumonia Elevated WBC count COVID-19 Shortness of breath Iron deficiency anemia Morbidly obese Osteophyte, left knee Knee pain, left Cellulitis DVT, lower extremity Essential hypertension Conjunctivitis Surgical History History of colonoscopy (2009) History of esophagogastroduodenoscopy (EGD) (2009) History of excision of mass (03/28/23) Left thigh mass Hx of hand surgery right hand/pinky History of tonsillectomy Family History Father , UNKNOWN AGE Automobile accident Mother Lung cancer Social History Smoking and tobacco/nicotine status: never used tobacco/nicotine Alcohol intake: current Alcohol intake frequency: holidays/special occasions only Substance/Drug Use: never Marital status: Single Current occupational status: employed 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 Physical Exam Const: COMMON NORMALS: no acute distress, patient oriented x3 and alert GENERAL APPEARANCE: cooperative ORIENTATION/CONSCIOUSNESS: Yes awake, Yes oriented to person, Yes oriented to place and Yes oriented to time HENMT: COMMON NORMALS: normocephalic and atraumatic HEAD & SCALP: normocephalic and atraumatic FACE & SINUS: normal facial exam MOUTH: Normal oral and palatal mucosa present THROAT: posterior oropharynx normal Eye: COMMON NORMALS: Equal, round and reactive pupils present, EOMs intact bilaterally, conjunctivae normal and no scleral icterus GENERAL EYE: appearance normal, both eyes and all related structures ALIGNMENT: Yes alignment normal PERIORBITAL: periorbital findings normal CONJUNCTIVA: Yes conjunctivae normal PUPIL: Yes Equal, round and reactive pupils present Neck/C-Spine: COMMON NORMALS: full ROM GENERAL: Yes normal visual inspection Lymph: LYMPHATIC: no lymphadenopathy noted Chest: COMMONS NORMALS: normal inspection of the chest Breast/axilla inspection: Yes no chest deformity, asymmetry, normal contours, no nodules, masses, tenderness Resp: COMMON NORMALS: normal respiratory effort, No retractions and No use of accessory muscles EFFORT & INSPECTION: Yes able to speak in complete sentences and Yes symmetric chest movement Cardio: COMMON NORMALS: regular rhythm and Peripheral pulses 2+ throughout RATE: tachycardic RHYTHM: regular rhythm PERIPHERAL PULSES: Peripheral pulses 2+ throughout GI: COMMON NORMALS: Normal to inspection, nondistended, normoactive bowel sounds present, Soft to palpation, non-tender and No hepatosplenomegaly present INSPECTION: Yes normal to inspection AUSCULTATION: Yes normoactive bowel sounds PALPATION: Yes Soft to palpation and Yes No hepatosplenomegaly present RECTAL EXAM: Yes deferred Extremity: COMMON NORMALS: normal to inspection GENERAL: Yes normal exam except as noted Neuro: COMMON NORMALS: patient oriented x3 SENSORIUM/ORIENTATION: Yes alert, Yes oriented to person, Yes oriented to place and Yes oriented to time CRANIAL NERVES: Yes CN normal except as noted Psych: COMMON NORMALS: mental status grossly normal, Normal thought process present, cooperative, activity/motor behavior normal, denies homicidal ideation and denies suicidal ideation THOUGHT PROCESS: Normal thought process present Skin: COMMON NORMALS: no wounds GENERAL SKIN EXAM: erythema, eschar, no fluctuance, hypertrophy and induration WOUNDS: Yes surgical site Details: bed Details: with slough, edematous, necrotic and with undermining, malodorous, open and surrounding erythema Course Vital Signs: Vital signs: Vital Signs Temperature 97.7 F 01/27/24 18:39 Pulse Rate 115 H 01/27/24 22:00 Respiratory Rate 25 H 01/27/24 18:39 Blood Pressure 129/78 01/27/24 22:00 Pulse Oximetry 99 01/27/24 22:00 Oxygen Delivery Me thod Room Air 01/27/24 18:39 MDM - Wound/Laceration Medical Decision Making Patient is a 43-year-old male that is now approximately 1 month status post epidermal cyst resection from the posterior medial aspect of the left thigh. His wound has broken down over the last 48 hours and he has developed necrotic sloughing as well as purulent drainage. We obtained a CBC which revealed an 18,000 white count. He has a CRP of 110. He has a lactic acid of 2.4 Dr. Nathen parkerd at 2044 and arrived at bedside at 2049. Patient is going to be admitted and will go to the OR tonight versus tomorrow. Blood cultures have been obtained. We are starting him on meropenem and vancomycin. He is to remain NPO. I am getting a CT of the left lower extremity. I have updated Dr. Braun, my attending about the admit. Orders placed CT results: FINDINGS: Bones/joints: No evidence of osseous erosion, fracture or subluxation. 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 Soft tissues: Prominent soft tissue edema and skin thickening of the medial left thigh compatible with cellulitis. Surgical wound and skin dario noted in place. Deep to the incision, there is a large collection of complex fluid and mottled air within the subcutaneous soft tissues compatible with abscess, possibly reflecting a gas-forming organism. The collection measures approximately 12 cm AP x 9 cm craniocaudal by 3 cm transverse. No evidence of deep compartment involvement. Lab Data 01/27/24 19:05 01/27/24 19:05 Radiology Impressions Lower Extremity CT 01/27/24 20:58 IMPRESSION: 1. Large abscess. Laboratory Results WBC 18.32 10^3/uL (3.29-11.43) H 01/27/24 19:05 RBC 3.83 10^6/uL (3.85-5.65) L 01/27/24 19:05 Hgb 9.90 g/dL (11.27-16.99) L 01/27/24 19:05 Hct 32.8 % (37-53) L 01/27/24 19:05 MCV 85.6 fl (82-101) 12/14/24 19:05 MCH 25.8 pg (27-33) L 01/27/24 19:05 MCHC 30.2 g/dL (30-55) 01/27/24 19:05 RDW 15.2 % (12.1-15.1) H 01/27/24 19:05 Plt Count 561 10^3/cmm (157-399) H 01/27/24 19:05 MPV 10.0 fL (7.4-10.4) 01/27/24 19:05 Neut % (Auto) 78.6 % 01/27/24 19:05 Lymph % (Auto) 12.3 % 01/27/24 19:05 [place] % (Auto) 7.2 % 01/27/24 19:05 Eos % (Auto) 1.1 % 01/27/24 19:05 Baso % (Auto) 0.3 % 01/27/24 19:05 Neut # (Auto) 14.41 10^3/uL (1.8-7.7) H 01/27/24 19:05 Lymph # (Auto) 2.3 10^3/uL (0.8-4.8) 01/27/24 19:05 [place] # (Auto) 1.3 10^3/uL (0.2-0.9) H 01/27/24 19:05 Eos # (Auto) 0.2 10^3/uL (0.0-0.8) 01/27/24 19:05 Baso # (Auto) 0.1 10^3/uL (0.0-0.1) 01/27/24 19:05 Nucleated RBC % (auto) 0 % 01/27/24 19:05 Nucleated RBCs # 0.0 /100WBC 01/27/24 19:05 Sodium 134 mmol/L (136-145) L 01/27/24 19:05 Potassium 4.2 mmol/L (3.5-5.1) 01/27/24 19:05 Chloride 101 mmol/L (98-107) 01/27/24 19:05 Carbon Dioxide 19 mmol/L (22-29) L 01/27/24 19:05 Anion Gap 18.2 (5-19) 01/27/24 19:05 BUN 14 mg/dL (6-20) 01/27/24 19:05 Creatinine 0.9 mg/dL (0.7-1.2) 01/27/24 19:05 GFR Calculation 92.1 mL/min (90-130) 01/27/24 19:05 Glucose 109 mg/dL (65-115) 01/27/24 19:05 Calculated Osmolality 279 mOsm/kg (285-295) L 01/27/24 19:05 Lactic Acid 2.4 mmol/L (0.5-2.2) H 01/27/24 19:05 Calcium 9.2 mg/dL (8.5-10.5) 01/27/24 19:05 Total Bilirubin 0.3 mg/dL (0.15-1.2) 01/27/24 19:05 AST 12 U/L (0-40) 01/27/24 19:05 ALT 19 U/L (0-41) 01/27/24 19:05 Alkaline Phosphatase 80 U/L (40-130) 01/27/24 19:05 C-Reactive Protein 113.2 mg/L (0.0-4.9) H 01/27/24 19:05 Total Protein 7.7 g/dL (6.6-8.7) 01/27/24 19:05 Albumin 3.4 g/dL (3.5-5.2) L 01/27/24 19:05 Globulin 4.3 g/dL (1.3-4.6) 01/27/24 19:05 All radiology interpretation(s) finalized by discharge Discharge Plan Discharge Patient Disposition: Admitted As Inpatient Admit Provider: Timmy Sena Clinical Impression: Morbidly obese, Surgical site infection Elevated WBC count Qualifiers: Leukocytosis type: unspecified Qualified Code(s): D72.829 - Elevated white blood cell count, unspecified Condition: Stable Coding Level of Care Code ED Flatlock Sewing Machine Operator for Dominique Garrido
--- NOTE | 2024-01-27 20:58 | CTR_ITS ---
PROCEDURE INFORMATION: Exam: CT Left Lower Extremity, Thigh Exam date and time: 01/27/2024 9:36 PM Age: 43 years old Clinical indication: Cellulitis and other: Drainage; Prior surgery; Surgery date: <1 month; Surgery type: Surgery for thigh soft tissue mass 01/02/2024; Patient HX: Swelling and redness with purluent drainage from incision site to left inner thigh from surgery for resection of soft tissue mass on 01/02/2024. ; Additional info: Surgical site infection TECHNIQUE: Imaging protocol: CT of the left lower extremity with intravenous contrast was performed. Exam focused on the thigh. Radiation optimization: All CT scans at this facility use at least one of these dose optimization techniques: automated exposure control; mA and/or kV adjustment per patient size (includes targeted exams where dose is matched to clinical indication); or iterative reconstruction. Contrast material: OMNI 350; Contrast volume: 125 ml; Contrast route: INTRAVENOUS (IV); COMPARISON: US soft tissue/extremity [id number] 09/15/2022 4:53 PM RADIATION DOSE METRICS: Total DLP (mGy-cm): 1702.86 FINDINGS: Bones/joints: No evidence of osseous erosion, fracture or subluxation. 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 Soft tissues: Prominent soft tissue edema and skin thickening of the medial left thigh compatible with cellulitis. Surgical wound and skin dario noted in place. Deep to the incision, there is a large collection of complex fluid and mottled air within the subcutaneous soft tissues compatible with abscess, possibly reflecting a gas-forming organism. The collection measures approximately 12 cm AP x 9 cm craniocaudal by 3 cm transverse. No evidence of deep compartment involvement. CT/CT lower leg LT w con [id number] IMPRESSION: 1. Large abscess.
[2024-01-27 21:10] LABS: Reflex Lactate Order REFLEX LACTIC ORDERD
--- NOTE | 2024-01-27 21:27 | PM.HP ---
Providers/Chief Complaint Admitting Physician: Timmy Sena MD Primary Care Provider: CODEY Espinal Chief Complaint: left leg pain, draining black stuff, smelly History of Present Illness Landen Luis Jr is a 43 year old male Who is status post excision of large mass of the subcutaneous tissue of the left thigh. Patient has history of morbid obesity. He has been followed by my colleague Dr. Ac, he did his previous operation and has been following him in the clinic, according to the patient after last clinic visit they removed some of the sutures and he has noticed some significant drainage that is foul-smelling. He presented for this finding. Review of Systems General: Reports: 10 or more systems reviewed and unremarkable except in HPI and below Medications/Allergies Home Medications Medication Instructions Recorded Confirmed Last Taken Type lisinopril 20 mg tablet 20 mg PO DAILY #90 tabs 03/08/23 01/22/24 01/01/24 Rx phentermine 15 mg capsule 15 mg PO DAILY 05/03/23 01/22/24 12/25/23 06:00 History hydrochlorothiazide 50 mg tablet 50 mg PO DAILY 09/28/23 01/22/24 01/01/24 History metformin 1,000 mg tablet 1,000 mg PO DAILY 09/28/23 01/22/24 01/01/24 History naltrexone 50 mg tablet 50 mg PO DAILY 09/28/23 01/22/24 01/01/24 History topiramate 25 mg tablet 25 mg PO BID 09/28/23 01/22/24 01/01/24 History albuterol sulfate 90 mcg/actuation 2 puff inhalation QID PRN 11/22/23 01/22/24 12/24/23 18:00 Rx aerosol inhaler shortness of breath or wheezing 30 days #8.5 grams budesonide-formoterol HFA 160 1 inh inhalation BID #10.2 grams 11/29/23 01/22/24 12/11/23 Rx mcg-4.5 mcg/actuation aerosol inhaler (Symbicort) albuterol sulfate 1.25 mg/3 mL 1.25 mg (3 mL) inhalation QID PRN 12/18/23 01/22/24 12/24/23 20:00 Rx solution for nebulization shortness of breath or wheezing #90 mL pantoprazole 40 mg tablet,delayed 40 mg PO BID 6 weeks #84 tabs 01/22/24 01/22/24 Unknown Rx release (Protonix) Allergies Allergy/AdvReac Type Severity Reaction Status Date / Time amlodipine Allergy nose bleeds Verified 01/22/24 11:32 nirmatrelvir [From Paxlovid] Allergy ADR-Chest Verified 01/22/24 11:32 Pain Penicillins Allergy unknown Verified 01/22/24 11:32 ritonavir [From Paxlovid] Allergy ADR-Chest Verified 01/22/24 11:32 Pain PFSH Acute PFSH: Medical History Pneumonia Elevated WBC count COVID-19 Shortness of breath Iron deficiency anemia Morbidly obese Osteophyte, left knee Knee pain, left Cellulitis DVT, lower extremity Essential hypertension Conjunctivitis Surgical History History of colonoscopy (2009) History of esophagogastroduodenoscopy (EGD) (2009) History of excision of mass (03/28/23) Left thigh mass Hx of hand surgery right hand/pinky History of tonsillectomy Family History Father , UNKNOWN AGE Automobile accident Mother Lung cancer Social History Smoking and tobacco/nicotine status: never used tobacco/nicotine Alcohol intake: current Alcohol intake frequency: holidays/special occasions only Substance/Drug Use: never Marital status: Single Current occupational status: employed 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 Extremity: NARRATIVE EXTREMITY EXAM: In the left lower extremity at the level of the posterior thigh and the bottom edge of the surgical incision there is a opening with dehiscence of about 3 to 4 cm there is seropurulent fluid draining from this area. Data 01/27/24 19:05 01/27/24 19:05 Micro: Microbiology 01/27/24 19:00 Blood Culture - Preliminary Blood SPECIMEN COLLECTED 01/27/24 19:05 Blood Culture - Preliminary Blood SPECIMEN COLLECTED A&P Assessment and plan (1) Morbidly obese: (2) Surgical site infection: (3) Dehiscence of closure of skin: (4) Sepsis: Plan After complete history, physical examination and review of all available clinical data the following is my assessment. This a 43-year-old male with morbid obesity who had an excision of a mass of the left lower extremity. He now presents with a surgical site infection as characterized by dehiscence of the wound drainage from the wound elevated white count and lactate level. He is not febrile but is tachycardic to 130. His last meal was about 2 hours ago. Patient will require debridement of washout of his wound and will likely require a wound VAC after debridement. Patient will be started on broad-spectrum antibiotics and we will obtain a stat CT of the left lower extremity to evaluate extension of the subcutaneous infection as well as for surgical planning. Since patient is not n.p.o. we plan to proceed to the OR early in the morning tomorrow. Attestations Medical Necessity Statement*: Patient will require 3 to 4 days of hospital stay for management of surgical site infection and sepsis. Coding Level of Care Code Acute Code for [facility] Fwd Diagnoses Morbidly obese E66.01 Surgical site infection T81.49XA Dehiscence of closure of skin T81.31XA Sepsis A41.9
[2024-01-27] MEDS: iohexol 350 mg/mL 500 mL Btl (per mL) IV (21:40)
[2024-01-27] MEDS: sodium chloride 0.9% 1,000 ML 999 ML IV ×2 (21:53→23:14)
[2024-01-27] MEDS: vancomycin 2,000 MG/400 ML PIGGYBACK 200 MG IV (21:54)
[2024-01-27] MEDS: ketorolac 30 mg/mL INJ IVP (21:54)
[2024-01-27 22:00] VITALS: BP 129/78; PULSE 115; O2SAT 99
[2024-01-27 22:35] VITALS: BP 116/59; PULSE 104; RESP 17; TEMP 36.9; O2SAT 97
[2024-01-27 22:35] LABS: Lactic Acid level (Lactate) 2.3 mmol/L (0.5-2.2)
[2024-01-27 22:36] VITALS: BMI 70.1
[2024-01-28] VITALS (15 sets, daily range): BP systolic 100–143; BP diastolic 45–81; PULSE 80–100; RESP 15–18; TEMP 36.2–37; O2SAT 94–100
[2024-01-28] MEDS: meropenem 1,000 mg SDV 1000 MG IVP ×4 (00:17→23:57)
[2024-01-28] MEDS: lactated ringers 1,000 ML 150 ML IV ×3 (00:17→18:19)
[2024-01-28 03:33] LABS: Basophils % 0.3 %; Eosinophils # 0.2 10^3/uL (0.0-0.8); Eosinophils % 1.4 %; Hematocrit 27.8 % (37-53); Lymphocytes # 2.1 10^3/uL (0.8-4.8); Lymphocytes % 13.8 %; Mean Corpuscular HGB Conc 29.5 g/dL (30-55); Mean Corpuscular Hemoglobin 25.7 pg (27-33); Mean Corpuscular Volume 87.1 fl (82-101); Mean Platelet Volume 10.4 fL (7.4-10.4); Monocytes # 1.2 10^3/uL (0.2-0.9); Monocytes % 7.8 %; Neutrophils # 11.57 10^3/uL (1.8-7.7); Neutrophils % 76.1 %; Nucleated Red Blood Cells % 0 %; Platelet Count 403 10^3/cmm (157-399); Red Blood Count 3.19 10^6/uL (3.85-5.65); Red Cell Distribution Width 15.1 % (12.1-15.1)
[2024-01-28 03:59] LABS: Anion Gap 16.5 (5-19); Blood Urea Nitrogen 16 mg/dL (6-20); Calcium 8.2 mg/dL (8.5-10.5); Carbon Dioxide 21 mmol/L (22-29); Chloride 106 mmol/L (98-107); Glomerular Filtration Rate 73.1 mL/min (90-130); Glucose 95 mg/dL (65-115); Lactic Sepsis W/Reflex 1.2 mmol/L (0.5-2.2); Magnesium 1.7 mg/dL (1.7-2.3); Osmolality Calculated 289 mOsm/kg (285-295); Potassium 4.5 mmol/L (3.5-5.1); Sodium 139 mmol/L (136-145)
[2024-01-28 04:01] LABS: Procalcitonin 0.11 ng/mL (0-0.5)
[2024-01-28 04:07] LABS: Estmated Average Glucose 100; Hemoglobin A1C 5.1 % (4.0-6.0)
[2024-01-28] MEDS: vancomycin 1,750 MG/350 ML PIGGYBACK 175 MG IV ×3 (05:06→21:53)
[2024-01-28] MEDS: ketorolac 30 mg/mL INJ 15 MG IVP ×4 (05:06→21:53)
--- NOTE | 2024-01-28 09:02 | PHA.VACGOAL ---
Vancomycin Goal - Goal Vancomycin Goal:: 10-15 mg/L Vancomycin Indication:: SSTI - Therapy Day of therpy:: Day []of [] . Actual body weight (kg): 489 lb 9.6 oz - Data Labs: WBC 15.20 10^3/uL (3.29-11.43) H 01/28/24 02:38 RBC 3.19 10^6/uL (3.85-5.65) L 01/28/24 02:38 Hgb 8.20 g/dL (11.27-16.99) L 01/28/24 02:38 Hct 27.8 % (37-53) L 01/28/24 02:38 MCV 87.1 fl (82-101) 01/28/24 02:38 MCH 25.7 pg (27-33) L 01/28/24 02:38 MCHC 29.5 g/dL (30-55) L 01/28/24 02:38 RDW 15.1 % (12.1-15.1) 01/28/24 02:38 Sodium 139 mmol/L (136-145) 01/28/24 02:38 Potassium 4.5 mmol/L (3.5-5.1) 01/28/24 02:38 Chloride 106 mmol/L (98-107) 01/28/24 02:38 Carbon Dioxide 21 mmol/L (22-29) L 01/28/24 02:38 Anion Gap 16.5 (5-19) 01/28/24 02:38 BUN 16 mg/dL (6-20) 01/28/24 02:38 Creatinine 1.1 mg/dL (0.7-1.2) 01/28/24 02:38 GFR Calculation 73.1 mL/min (90-130) L 01/28/24 02:38 Treatment plan:: new consult Regimen:: 1750 mg q8h trough 01/28 0500
--- NOTE | 2024-01-28 10:00 | PM.PN ---
Subjective Subjective: Patient did well overnight, plan is for debridement in the OR today. Vitals/I&O/Wt Last Vital Signs Temp 98.2 F 01/31/24 07:00 Pulse 95 01/31/24 07:00 Resp 19 H 01/31/24 07:00 BP 133/77 01/31/24 07:00 Pulse Ox 98 01/31/24 07:00 O2 Del Method Room Air 01/31/24 07:00 O2 Flow Rate 7 01/30/24 15:02 01/30/24 01/31/24 01/31/24 22:59 06:59 14:59 Intake Total 1550 / 3005 2610 / 5615 480 / 480 Output Total 810 / 810 500 / 1310 Balance 740 / 2195 2110 / 4305 480 / 480 Weight last 48 hrs Weight 489 lb Physical Exam Extremity: NARRATIVE EXTREMITY EXAM: Left lower extremity wound continues to have purulent discharge Data 01/31/24 05:59 01/31/24 05:59 Micro: Microbiology 01/28/24 12:15 Gram Stain - Final Thigh - Left Anaerobic Culture - Preliminary Wound Culture - Preliminary Gram Negative Rods Coag positive Staphylococcus 01/30/24 14:35 Gram Stain - Final Leg - #1 01/28/24 12:15 Gram Stain - Final Tissue Tissue Culture - Preliminary Gram Negative Rods Coag positive Staphylococcus A&P Assessment and plan (1) Morbidly obese: (2) Surgical site infection: (3) Sepsis: Plan Patient with left lower extremity surgical site infection, plan is to proceed to the OR today for surgery. Attestations Medical Necessity Statement*: Patient will require 3 to 5 days of hospital stay for management of surgical site infection with debridement and antibiotics. Coding Level of Care Code Acute Code for [facility] Fwd Diagnoses Morbidly obese E66.01 Surgical site infection T81.49XA Sepsis A41.9
--- NOTE | 2024-01-28 10:07 | PC.NURSE ---
Patient left to surgery via bed, escorted by EYAD Zarate and EYAD Limon from surgery at 1005.
[2024-01-28] MEDS: sodium chloride 0.9% 1,000 ML 30 ML IV (10:59)
--- NOTE | 2024-01-28 10:59 | ANES.PREANE2 ---
Pre-Anesthetic Assessment Height/Weight: Height 1.78 m Weight 222.079 kg Temp Pulse Resp BP Pulse Ox O2 Del Method 97.4 F L 93 18 116/57 96 Room Air 01/28/24 10:13 01/28/24 10:13 01/28/24 10:13 01/28/24 10:13 01/28/24 10:13 01/28/24 10:13 Operation Date: 01/28/24 10:20 Proposed Procedures p Debridement washout of left lower extremity(Left) - Timmy Sena MD Familial anesthetic complications: None Was Beta Devaughn taken within 24 hours: N/A Was Clonidine taken within 24 hours: N/A Last intake: Intake Last Liquid Date 01/27/24 Last Liquid Time 18:00 Last Solid Date 01/27/24 Last Solid Time 18:00 Social No alcohol and No tobacco Exam alert, oriented x 3, clear to auscultation bilaterally and regular rate & rhythm Airway Mallampati: Class IV Dentition: full Pulmonary Sleep Apnea CV/HEM Hypertension GI Gastroesophageal Reflux Disease Metabolic Diabetes Mellitus and Morbid Obesity Anesthetic Plan ASA status: 3 Anesthesia: General Risk of > 500 ml blood loss (7ml/kg in children): No Medications/Allergies Home Medications Medication Instructions Recorded Confirmed Last Taken Type lisinopril 20 mg tablet 20 mg PO DAILY #90 tabs 03/08/23 01/27/24 01/27/24 Rx phentermine 15 mg capsule 15 mg PO DAILY 05/03/23 01/27/24 01/27/24 History hydrochlorothiazide 50 mg tablet 50 mg PO DAILY 09/28/23 01/27/24 01/27/24 History metformin 1,000 mg tablet 1,000 mg PO BID 09/28/23 01/27/24 01/27/24 History naltrexone 50 mg tablet 50 mg PO DAILY 09/28/23 01/27/24 01/27/24 History topiramate 25 mg tablet 25 mg PO BID 09/28/23 01/27/24 01/27/24 History pantoprazole 40 mg tablet,delayed 40 mg PO DAILY 01/27/24 01/27/24 01/27/24 History release (Protonix) Allergies Allergy/AdvReac Type Severity Reaction Status Date / Time amlodipine Allergy nose bleeds Verified 01/22/24 11:32 nirmatrelvir [From Paxlovid] Allergy ADR-Chest Verified 01/22/24 11:32 Pain Penicillins Allergy unknown Verified 01/22/24 11:32 ritonavir [From Paxlovid] Allergy ADR-Chest Verified 01/22/24 11:32 Pain Current Medications Generic Name Dose Route Start Last Admin Trade Name Freq PRN Reason Stop Dose Admin Lactated Ringer's 1,000 mls @ 150 mls/hr 01/27/24 22:35 01/28/24 06:17 Lactated Ringers IV 150 mls/hr .[id number] POOJA Administration Vancomycin HCl 1,750 mg in 350 mls @ 175 mls/hr 01/28/24 06:00 01/28/24 07:35 Vancocin IV Infused Q8H POOJA Infusion Ketorolac Tromethamine 15 mg 01/28/24 04:00 01/28/24 09:49 Ketorolac 30 Mg/Ml Inj IVP 02/02/24 03:59 15 mg Q6H POOJA Administration Meropenem 1,000 mg 01/27/24 23:00 01/28/24 06:17 Meropenem 1,000 Mg Sdv IVP 1,000 mg Q8H POOJA Administration Protocol [facility] Anesthesia Medical History Pneumonia Elevated WBC count COVID-19 Shortness of breath Iron deficiency anemia Morbidly obese Osteophyte, left knee Knee pain, left Cellulitis DVT, lower extremity Essential hypertension Conjunctivitis Surgical History History of colonoscopy (2009) History of esophagogastroduodenoscopy (EGD) (2009) History of excision of mass (03/28/23) Left thigh mass Hx of hand surgery right hand/pinky History of tonsillectomy Family History Father , UNKNOWN AGE Automobile accident Mother Lung cancer Social History Smoking and tobacco/nicotine status: never used tobacco/nicotine Alcohol intake: current Alcohol intake frequency: holidays/special occasions only Substance/Drug Use: never Marital status: Single Current occupational status: employed 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 Data Anesthesia 01/28/24 02:38 01/28/24 02:38 Short CBC 01/27/24 01/28/24 Range/Units 19:05 02:38 WBC 18.32 H 15.20 H (3.29-11.43) 10^3/uL Hgb 9.90 L 8.20 L (11.27-16.99) g/dL Hct 32.8 L 27.8 L (37-53) % MCV 85.6 87.1 (82-101) fl Plt Count 561 H 403 H (157-399) 10^3/cmm Neut % (Auto) 78.6 76.1 % Neut # (Auto) 14.41 H 11.57 H (1.8-7.7) 10^3/uL BMP 01/27/24 01/28/24 19:05 02:38 Sodium 134 L 139 Potassium 4.2 4.5 Chloride 101 106 Carbon Dioxide 19 L 21 L BUN 14 16 Creatinine 0.9 1.1 Glucose 109 95 Calcium 9.2 8.2 L Liver Function 01/27/24 Range/Units 19:05 Total Bilirubin 0.3 (0.15-1.2) mg/dL AST 12 (0-40) U/L ALT 19 (0-41) U/L Alkaline Phosphatase 80 (40-130) U/L Albumin 3.4 L (3.5-5.2) g/dL Coags 01/27/24 19:05 C-Reactive Protein 113.2 H Microbiology 01/27/24 19:00 Blood Culture - Preliminary Blood SPECIMEN COLLECTED 01/27/24 19:05 Blood Culture - Preliminary Blood SPECIMEN COLLECTED Cardiac Studies: No Data to Display
--- NOTE | 2024-01-28 12:37 | PM.OP ---
Operative Report Date of procedure: January 28, 2024 Pre-op diagnosis: Surgical site infection of the left thigh Post-op diagnosis: Necrotizing surgical site infection of the left thigh Post-op findings: The surgical wound measured 40 cm in length the bottom 6 cm of the wound were dehisced and there was seropurulent drainage from the site, I increased that opening to about 13 cm and large amount of necrotic fat was evacuated from the subcutaneous tissue, the subcutaneous closure was that he is in two thirds of the total length of the wound on the the most anterior tear of the wound show healing of the subcutaneous tissue, significant amount of necrotic fat that was evacuated with blunt dissection. After complete evacuation of all the necrotic tissue the residual fat of the bottom had a very thick green bacterial biofilm. Final measurement of the cavity was 12 cm x 8 cm x 5 cm with undermining on the anterior aspect of another 15 cm Procedure done: Debridement and washout of necrotizing infection of the left thigh Specimens removed/disposition: Multiple cultures taken, tissue was obtained for culture Surgeon: Timmy Sena MD Cobbler Apprentice: ALVINA OR STaff Estimated blood loss: 15 Brief History: 43-year-old male who had history of excision of subcutaneous mass in the left lower extremity and now presents with purulent foul-smelling drainage from the wound and superficial dehiscence. After discussion we will resume an official document in my preop note with side to proceed to the OR for debridement. Procedure: Patient was brought into the OR, he was placed in a supine position, general anesthesia was given. The left leg was placed in a Staradub and the surgical site was prepped and draped in the usual sterile fashion. A timeout was conducted. The surgical wound measured 40 cm in length the bottom 6 cm of the wound were dehisced and there was seropurulent drainage from the site, I increased that opening to about 13 cm and large amount of necrotic fat was evacuated from the subcutaneous tissue, the subcutaneous closure was that he is in two thirds of the total length of the wound on the the most anterior tear of the wound show healing of the subcutaneous tissue, significant amount of necrotic fat that was evacuated with blunt dissection. After complete evacuation of all the necrotic tissue the residual fat of the base of the wound had a very thick green bacterial biofilm. This bacterial biofilm was described with blunt dissection and I was able to visualize healthy bleeding tissue. Hemostasis was obtained. I then proceeded to irrigate the cavity with 3 L of saline using a pulse environmental protection officer. Final measurement of the cavity was 12 cm x 8 cm x 5 cm with undermining on the anterior aspect of another 15 cm. The cavity was packed with 2 full rolls of Betadine-soaked Kerlix and a sterile dressing was applied. The patient tolerated well the procedure, all counts were correct after surgical intervention.
--- NOTE | 2024-01-28 13:14 | PC.NURSE ---
Report received from EYAD Bailey. Patient returned from surgery, via bed, at 1310 in stable condition.
[2024-01-28] MEDS: pantoprazole DR 40 mg Tablet PO (13:23)
[2024-01-29] VITALS: BP 119/68; PULSE 85; RESP 17; TEMP 36.8; O2SAT 96
[2024-01-29] MEDS: lactated ringers 1,000 ML 150 ML IV ×3 (00:17→15:28)
[2024-01-29 04:00] VITALS: BP 112/61; PULSE 80; RESP 16; TEMP 36.5; O2SAT 97
[2024-01-29 05:13] LABS: Basophils % 0.2 %; Eosinophils # 0.1 10^3/uL (0.0-0.8); Eosinophils % 0.4 %; Hematocrit 28.9 % (37-53); Lymphocytes # 2.1 10^3/uL (0.8-4.8); Lymphocytes % 14.3 %; Mean Corpuscular HGB Conc 29.1 g/dL (30-55); Mean Corpuscular Hemoglobin 25.8 pg (27-33); Mean Corpuscular Volume 88.7 fl (82-101); Monocytes # 0.9 10^3/uL (0.2-0.9); Neutrophils # 11.36 10^3/uL (1.8-7.7); Neutrophils % 78.6 %; Nucleated Red Blood Cells % 0 %; Platelet Count 448 10^3/cmm (157-399); Red Blood Count 3.26 10^6/uL (3.85-5.65); Red Cell Distribution Width 15.3 % (12.1-15.1); White Blood Count 14.44 10^3/uL (3.29-11.43)
[2024-01-29 05:57] LABS: Vancomycin Trough 22.9 ug/mL (10-15)
[2024-01-29 05:57] LABS: Anion Gap 14.6 (5-19); Blood Urea Nitrogen 14 mg/dL (6-20); Calcium 8.5 mg/dL (8.5-10.5); Carbon Dioxide 20 mmol/L (22-29); Chloride 107 mmol/L (98-107); Creatinine Clr Calc Pharmacy 223.1721; Glomerular Filtration Rate 105.5 mL/min (90-130); Glucose 106 mg/dL (65-115); Magnesium 1.9 mg/dL (1.7-2.3); Osmolality Calculated 285 mOsm/kg (285-295); Phosphorus 3.7 mg/dL (2.5-4.5); Potassium 4.6 mmol/L (3.5-5.1); Sodium 137 mmol/L (136-145)
[2024-01-29 07:18] VITALS: BP 112/62; PULSE 86; RESP 16; TEMP 36.9; O2SAT 96
[2024-01-29] MEDS: pantoprazole DR 40 mg Tablet PO (08:01)
[2024-01-29] MEDS: meropenem 1,000 mg SDV 1000 MG IVP ×2 (08:01→15:29)
[2024-01-29] MEDS: vancomycin 2,000 MG/400 ML PIGGYBACK 200 MG IV ×2 (08:14→21:05)
[2024-01-29] MEDS: ketorolac 30 mg/mL INJ 15 MG IVP ×3 (09:42→21:06)
--- NOTE | 2024-01-29 10:05 | P.PN_ITS ---
Subjective 2 Subjective: Patient seen and examined. Pain controlled. No complaints Vitals/I&O/Wt Last Vital Signs Temp 98.3 F 01/30/24 04:00 Pulse 87 01/30/24 04:00 Resp 18 01/30/24 04:00 BP 134/91 01/30/24 04:00 Pulse Ox 96 01/30/24 04:00 O2 Del Method Room Air 01/30/24 04:00 O2 Flow Rate 8 01/28/24 12:45 01/29/24 01/30/24 01/30/24 22:59 06:59 14:59 Intake Total 1480 / 3360 400 / 3760 Output Total 900 / 900 Balance 1480 / 3360 -500 / 2860 Weight last 48 hrs Weight 489 lb Weight 489 lb Physical Exam 2 Narrative: General: No acute distress, awake alert and oriented x 3 Skin: Left leg wound without erythema there is some thick exudate still in the wound, no fluctuance Data 01/30/24 05:47 01/30/24 05:47 Micro: Microbiology 01/28/24 12:15 Gram Stain - Final Thigh - Left Anaerobic Culture - Preliminary Wound Culture - Preliminary Gram Negative Rods 01/28/24 12:15 Gram Stain - Final Tissue Tissue Culture - Preliminary Gram Negative Rods A&P Assessment and plan (1) Morbidly obese: (2) Surgical site infection: (3) Dehiscence of closure of skin: (4) Sepsis: Plan Dressing was changed with wet-to-dry Kerlix covered by ABD N.p.o. after midnight 4 OR tomorrow Sharp excisional debridement of left leg wound with wound VAC placement The risks and benefits of the procedure, including but not limited to, bleeding, worsening, were explained to the patient. He is understand the risks and wishes to proceed. Infection, scar, numbness, pain, damage to surrounding structures, need for further surgery Attestations 2 Medical Necessity Statement*: Patient requires 1-2 more nights in the hospital for IV antibiotics and surgery tomorrow for Sharp excisional debridement of left leg wound with wound VAC placement and a surgical site infection with wound dehiscence Coding Level of Care Code 80016 Diagnoses Morbidly obese E66.01 Surgical site infection T81.49XA Dehiscence of closure of skin T81.31XA Sepsis A41.9
[2024-01-29 11:15] VITALS: BP 108/70; PULSE 90; RESP 18; TEMP 36.9; O2SAT 96
[2024-01-29 15:41] VITALS: BP 120/59; PULSE 90; TEMP 36.8; O2SAT 96
[2024-01-29 20:00] VITALS: BP 143/72; PULSE 95; RESP 16; TEMP 36.8; O2SAT 97
[2024-01-30] VITALS (16 sets, daily range): BP systolic 114–176; BP diastolic 62–91; PULSE 79–95; RESP 9–24; TEMP 36.4–37.1; O2SAT 93–100
[2024-01-30] MEDS: lactated ringers 1,000 ML 150 ML IV ×2 (00:32→08:35)
[2024-01-30] MEDS: meropenem 1,000 mg SDV 1000 MG IVP ×3 (00:32→17:38)
[2024-01-30] MEDS: ketorolac 30 mg/mL INJ 15 MG IVP ×4 (04:25→20:45)
[2024-01-30 06:05] LABS: Basophils # 0.1 10^3/uL (0.0-0.1); Basophils % 0.6 %; Eosinophils # 0.3 10^3/uL (0.0-0.8); Lymphocytes % 22.7 %; Mean Corpuscular HGB Conc 29.3 g/dL (30-55); Mean Corpuscular Hemoglobin 25.6 pg (27-33); Mean Corpuscular Volume 87.5 fl (82-101); Mean Platelet Volume 9.9 fL (7.4-10.4); Monocytes # 0.6 10^3/uL (0.2-0.9); Monocytes % 6.9 %; Neutrophils % 66.4 %; Nucleated Red Blood Cells % 0 %; Platelet Count 408 10^3/cmm (157-399); Red Cell Distribution Width 15.3 % (12.1-15.1); White Blood Count 8.89 10^3/uL (3.29-11.43)
[2024-01-30 06:34] LABS: Anion Gap 13.1 (5-19); Blood Urea Nitrogen 14 mg/dL (6-20); Calcium 8.5 mg/dL (8.5-10.5); Carbon Dioxide 23 mmol/L (22-29); Chloride 109 mmol/L (98-107); Creatinine Clr Calc Pharmacy 255.0538; Glomerular Filtration Rate 123.1 mL/min (90-130); Glucose 96 mg/dL (65-115); Magnesium 1.8 mg/dL (1.7-2.3); Osmolality Calculated 290 mOsm/kg (285-295); Phosphorus 3.3 mg/dL (2.5-4.5); Potassium 5.1 mmol/L (3.5-5.1); Sodium 140 mmol/L (136-145)
[2024-01-30] MEDS: vancomycin 2,000 MG/400 ML PIGGYBACK 200 MG IV ×2 (08:41→20:45)
[2024-01-30] MEDS: sodium chloride 0.9% 1,000 ML 30 ML IV (12:42)
--- NOTE | 2024-01-30 13:10 | PM.PN ---
Vitals/I&O/Wt Last Vital Signs Temp 98.2 F 01/31/24 07:00 Pulse 95 01/31/24 07:00 Resp 19 H 01/31/24 07:00 BP 133/77 01/31/24 07:00 Pulse Ox 98 01/31/24 07:00 O2 Del Method Room Air 01/31/24 07:00 O2 Flow Rate 7 01/30/24 15:02 01/30/24 01/31/24 01/31/24 22:59 06:59 14:59 Intake Total 1550 / 3005 2610 / 5615 480 / 480 Output Total 810 / 810 500 / 1310 Balance 740 / 2195 2110 / 4305 480 / 480 Weight last 48 hrs Weight 489 lb Data 01/31/24 05:59 01/31/24 05:59 Micro: Microbiology 01/30/24 14:35 Gram Stain - Final Leg - #1 Tissue Culture - Preliminary 01/28/24 12:15 Gram Stain - Final Thigh - Left Anaerobic Culture - Preliminary Wound Culture - Preliminary Gram Negative Rods Coag positive Staphylococcus 01/28/24 12:15 Gram Stain - Final Tissue Tissue Culture - Preliminary Gram Negative Rods Coag positive Staphylococcus A&P Assessment and plan (1) Morbidly obese: (2) Surgical site infection: (3) Dehiscence of closure of skin: (4) Sepsis: Plan Sharp excisional debridement of left leg wound with wound VAC placement The risks and benefits of the procedure, including but not limited to, bleeding, worsening, were explained to the patient. He is understand the risks and wishes to proceed. Infection, scar, numbness, pain, damage to surrounding structures, need for further surgery Attestations Medical Necessity Statement*: Patient require 1 more night in the hospital for wound VAC therapy and wound care. He will likely be discharged home tomorrow Coding Level of Care Code Acute Code for [facility] Fwd Diagnoses Morbidly obese E66.01 Surgical site infection T81.49XA Dehiscence of closure of skin T81.31XA Sepsis A41.9
--- NOTE | 2024-01-30 13:24 | ANES.PAUD2 ---
Pre-Anesthetic Update Pre-Anesthetic Assessment: Date of Surgery/Procedure: 01/30/24 Proposed Procedure: Operation Date: 01/28/24 10:20 Proposed Procedures p Debridement washout of left lower extremity(Left) - Timmy Sena MD Operation Date: 01/30/24 11:55 Proposed Procedures p Sharp Excisional Debridement with wound vac placement(Not Applicable) - Juan J Ac, DO Any changes to Pre-Anesthetic Assessment?: No Last Intake: Intake Last Liquid Date 01/29/24 Last Liquid Time 19:00 Last Solid Date 01/29/24 Last Solid Time 19:00 Labs Last 48hrs: Short CBC 01/29/24 01/30/24 Range/Units 04:49 05:47 WBC 14.44 H 8.89 (3.29-11.43) 10^ 3/uL Hgb 8.40 L 8.20 L (11.27-16.99) g/ dL Hct 28.9 L 28.0 L (37-53) % MCV 88.7 87.5 (82-101) fl Plt Count 448 H 408 H (157-399) 10^3/c mm Neut % (Auto) 78.6 66.4 % Neut # (Auto) 11.36 H 5.90 (1.8-7.7) 10^3/u L BMP 01/29/24 01/30/24 04:49 05:47 Sodium 137 140 Potassium 4.6 5.1 Chloride 107 109 H Carbon Dioxide 20 L 23 BUN 14 14 Creatinine 0.8 0.7 Glucose 106 96 Calcium 8.5 8.5 Vitals: Temperature 98.3 F 01/30/24 07:15 Temperature Source Oral 01/30/24 04:00 Pulse Rate 80 01/30/24 07:15 Pulse Rhythm Regular 01/27/24 22:36 Pulse Strength 3+ Normal 01/28/24 13:29 Respiratory Rate 18 01/30/24 04:00 Respiratory Effort Spontaneous, Non- Labored 01/28/24 13:29 Respiratory Depth Normal 01/28/24 13:29 Respiratory Patter n Normal 01/28/24 13:29 Blood Pressure 114/80 01/30/24 07:15 Blood Pressure Baylee n 91 01/30/24 07:15 Blood Pressure Pos ition Supine 01/29/24 20:00 Pulse Oximetry 96 01/30/24 07:15 Oxygen Delivery Me thod Room Air 01/30/24 07:15 Oxygen Flow Rate 8 01/28/24 12:45 Sepsis Recent Feve r Within 48 Hours No 01/27/24 18:39 Exam: Pre-Anes Outpt Exam: alert, oriented x 3, clear to auscultation bilaterally and regular rate & rhythm Cardiac Studies: No Data to Display
--- NOTE | 2024-01-30 15:00 | PM.OP ---
Operative Report Date of procedure: January 30, 2024 Pre-op diagnosis: Surgical site infection of the left thigh Post-op diagnosis: same Procedure done: Sharp excisional debridement of left thigh wound greater than 250 cm? Wound VAC placement Implants: Black foam wound VAC Specimens removed/disposition: Tissue for culture Surgeon: Juan J Ac DO Anesthesia: General Estimated blood loss (mL): 10 Complications: None apparent Brief History: This is a very pleasant morbidly obese gentleman with a BMI over 70, who previously underwent excision of subcutaneous mass left thigh. He had partial dehiscence of the incision and a surgical site infection. He previously underwent debridement of this wound and is come back today for repeat debridement and wound VAC placement. Risks and benefits of the procedure, including but limited to, bleeding, infection, scar, numbness, pain, need for the surgery, worsening of the infection, damage surrounding structures, wound VAC malfunction, were explained the patient. He is understand the risks and wished to proceed. Procedure: Patient brought in the op room placed on the OR table in the supine position. General tracheal ovation was achieved by the part of anesthesia. Patient was then placed into the lithotomy position. The left thigh was inspected prepped and draped in usual sterile fashion. Time was performed. All present were in agreement. Sharp curette was used to cut away exudative tissue from the wound that measured 15 cm in length by 4 cm in width by 8 cm in depth. Wound tunneled anteriorly 10 cm. It was carried down to healthy bleeding tissue. Some of the exudative tissue excised was sent for tissue culture. Hemostasis was achieved electrocautery. A black foam wound sponge was cut to shape and placed in the wound. This was then bridged to the anterior thigh. Suction was placed and there was no leak. Patient tolerated procedure well.
--- NOTE | 2024-01-30 15:30 | ANE.PACU2 ---
Inpatient post-anesthesia follow up: Airway intact: Yes Vital signs: Temperature 97.9 F Pulse Rate 83 Respiratory Rate 18 Blood Pressure 128/73 Pulse Oximetry 96 Oxygen Delivery Me thod Room Air Oxygen Flow Rate 7 Fraction of Inspir ed Oxygen Hydration adequate: Yes Nausea and vomiting: No Pain level: 1 Mental status: Baseline
[2024-01-30] MEDS: topiramate 25 mg Tablet PO (17:39)
[2024-01-30] MEDS: metformin 500 mg Tablet 1000 MG PO (17:39)
[2024-01-30] MEDS: lactated ringers 1,000 ML 125 ML IV (17:39)
[2024-01-30 20:44] LABS: Vancomycin Trough 17.9 ug/mL (10-15)
[2024-01-31] MEDS: meropenem 1,000 mg SDV 1000 MG IVP ×2 (00:03→07:59)
[2024-01-31 03:00] VITALS: BP 128/73; PULSE 83; RESP 18; TEMP 36.6; O2SAT 96
[2024-01-31] MEDS: ketorolac 30 mg/mL INJ 15 MG IVP ×3 (05:00→16:02)
[2024-01-31 06:42] LABS: Basophils % 0.3 %; Eosinophils # 0.4 10^3/uL (0.0-0.8); Eosinophils % 3.6 %; Hematocrit 28.7 % (37-53); Lymphocytes # 1.6 10^3/uL (0.8-4.8); Lymphocytes % 16.3 %; Mean Corpuscular HGB Conc 29.3 g/dL (30-55); Mean Corpuscular Hemoglobin 25.5 pg (27-33); Mean Corpuscular Volume 87.2 fl (82-101); Mean Platelet Volume 9.8 fL (7.4-10.4); Monocytes # 0.7 10^3/uL (0.2-0.9); Monocytes % 7.3 %; Neutrophils # 7.01 10^3/uL (1.8-7.7); Nucleated Red Blood Cells % 0 %; Platelet Count 434 10^3/cmm (157-399); Red Blood Count 3.29 10^6/uL (3.85-5.65); Red Cell Distribution Width 15.2 % (12.1-15.1); White Blood Count 9.74 10^3/uL (3.29-11.43)
[2024-01-31 07:00] VITALS: BP 133/77; PULSE 95; RESP 19; TEMP 36.8; O2SAT 98
[2024-01-31 07:02] LABS: Blood Urea Nitrogen 15 mg/dL (6-20); Calcium 8.4 mg/dL (8.5-10.5); Carbon Dioxide 24 mmol/L (22-29); Chloride 107 mmol/L (98-107); Creatinine Clr Calc Pharmacy 297.5628; Glucose 90 mg/dL (65-115); Magnesium 1.6 mg/dL (1.7-2.3); Osmolality Calculated 290 mOsm/kg (285-295); Sodium 140 mmol/L (136-145)
[2024-01-31 07:13] LABS: Anion Gap 13.5 (5-19); Potassium 4.5 mmol/L (3.5-5.1)
[2024-01-31] MEDS: hydroCHLOROthiazide 25 mg Tablet 50 MG PO (07:59)
[2024-01-31] MEDS: metformin 500 mg Tablet 1000 MG PO (07:59)
[2024-01-31] MEDS: topiramate 25 mg Tablet PO (07:59)
[2024-01-31] MEDS: pantoprazole DR 40 mg Tablet PO (08:00)
[2024-01-31] MEDS: lisinopril 20 mg Tablet PO (08:00)
[2024-01-31] MEDS: vancomycin 2,000 MG/400 ML PIGGYBACK 200 MG IV (09:32)
[2024-01-31 11:00] VITALS: BP 131/66; PULSE 99; RESP 20; TEMP 36.3; O2SAT 97
--- NOTE | 2024-01-31 13:28 | PM.DCS ---
Discharge Providers Date of Admission: 01/27/24 21:26 Date of Discharge: January 31, 2024 Attending Provider at Admission: Timmy Sena MD Attending Provider at Discharge: Timmy Sena MD Primary Care Provider: CODEY Espinal Diagnoses at Discharge Discharge Diagnosis (1) Morbidly obese: Status: Acute (2) Surgical site infection: Status: Acute (3) Dehiscence of closure of skin: Status: Acute (4) Sepsis: Status: Acute Reason for Visit Reason for Visit: left leg pain, draining black stuff, smelly Hospital Course Hospital Course This is a very pleasant morbidly obese 43-year-old gentleman with a BMI over 70, who previously underwent excision of a subcutaneous mass of his left thigh. He had dehiscence of the wound and a surgical site infection. He underwent sharp excisional debridement twice and then a wound VAC was placed. A home wound VAC was placed and he was discharged home in good condition with follow-up Physical Exam Narrative: General : Patient is well developed , no acute distress, oriented x3 Head : Normal cephalic, a-traumatic. Ears : Pinnae and external canal are normal. Hearing is normal. Eyes : PERRLA, Sclera and injection are normal. No conjunctival discharge. Nose : Mucous membranes are without erythema. Throat : buccal mucosa is normal, gums are without significant recession or hypertrophy. Lungs : Equal chest rise bilaterally, no use of accessory muscles, trachea is midline. Cor : Rate and rhythm are normal. Abdomen : Soft, ND, NT, no g/r/m Skin: Wound VAC in place without leak Extremities : No edema, no cyanosis or clubbing, dorsalis pedis pulses are present bilaterally, non-tender to palpation of calves. Upper extremities are normal bilaterally. Back : non-tender to palpation, no CVA tenderness. Neuro : CN II - XII intact, Upper and lower extremities have equal and full strength Discharge Data Studies Completed and Pending Completed Studies During Hospitalization Category Date Time Status CT lower leg LT w con [id number] Stat Cat Scan 01/27/24 20:58 Completed Pending at discharge Category Date Time Status Anaerobic Culture Routine Lab 01/28/24 12:15 Results BMP [Basic Metabolic Panel] AM LABS Lab 02/01/24 04:00 Ordered BMP [Basic Metabolic Panel] AM LABS Lab 02/02/24 04:00 Ordered Blood Culture Stat Lab 01/27/24 19:00 Results CBC Auto Diff [Complete Blood Count w/Auto] AM LABS Lab 02/01/24 04:00 Ordered CBC Auto Diff [Complete Blood Count w/Auto] AM LABS Lab 02/02/24 04:00 Ordered Magnesium AM LABS Lab 02/01/24 04:00 Ordered Magnesium AM LABS Lab 02/02/24 04:00 Ordered Tissue Culture and Gram Stain Routine Lab 01/28/24 12:15 Results Tissue Culture and Gram Stain Routine Lab 01/30/24 14:35 Results Wound Culture and Gram Stain Routine Lab 01/28/24 12:15 Results Radiology Impressions Lower Extremity CT 01/27/24 20:58 IMPRESSION: 1. Large abscess. Laboratory Results WBC 9.74 10^3/uL (3.29-11.43) 01/31/24 05:59 RBC 3.29 10^6/uL (3.85-5.65) L 01/31/24 05:59 Hgb 8.40 g/dL (11.27-16.99) L 01/31/24 05:59 Hct 28.7 % (37-53) L 01/31/24 05:59 MCV 87.2 fl (82-101) 01/31/24 05:59 MCH 25.5 pg (27-33) L 01/31/24 05:59 MCHC 29.3 g/dL (30-55) L 01/31/24 05:59 RDW 15.2 % (12.1-15.1) H 01/31/24 05:59 Plt Count 434 10^3/cmm (157-399) H 01/31/24 05:59 MPV 9.8 fL (7.4-10.4) 01/31/24 05:59 Neut % (Auto) 72.0 % 01/31/24 05:59 Lymph % (Auto) 16.3 % 01/31/24 05:59 [place]osa % (Auto) 7.3 % 01/31/24 05:59 Eos % (Auto) 3.6 % 01/31/24 05:59 Baso % (Auto) 0.3 % 01/31/24 05:59 Neut # (Auto) 7.01 10^3/uL (1.8-7.7) 01/31/24 05:59 Lymph # (Auto) 1.6 10^3/uL (0.8-4.8) 01/31/24 05:59 [place] # (Auto) 0.7 10^3/uL (0.2-0.9) 01/31/24 05:59 Eos # (Auto) 0.4 10^3/uL (0.0-0.8) 01/31/24 05:59 Baso # (Auto) 0.0 10^3/uL (0.0-0.1) 01/31/24 05:59 Nucleated RBC % (auto) 0 % 01/31/24 05:59 Nucleated RBCs # 0.0 /100WBC 01/31/24 05:59 Sodium 140 mmol/L (136-145) 01/31/24 05:59 Potassium 4.5 mmol/L (3.5-5.1) 01/31/24 05:59 Chloride 107 mmol/L (98-107) 01/31/24 05:59 Carbon Dioxide 24 mmol/L (22-29) 01/31/24 05:59 Anion Gap 13.5 (5-19) 01/31/24 05:59 BUN 15 mg/dL (6-20) 01/31/24 05:59 Creatinine 0.6 mg/dL (0.7-1.2) L 01/31/24 05:59 GFR Calculation 147.0 mL/min (90-130) H 01/31/24 05:59 Glucose 90 mg/dL (65-115) 01/31/24 05:59 Estimat Average Glucose 100 01/28/24 02:38 Hemoglobin A1c 5.1 % (4.0-6.0) 01/28/24 02:38 Calculated Osmolality 290 mOsm/kg (285-295) 01/31/24 05:59 Lactic Acid 1.2 mmol/L (0.5-2.2) 01/28/24 02:38 Lactic Acid (Sepsis) 2.3 mmol/L (0.5-2.2) H 01/27/24 22:02 Calcium 8.4 mg/dL (8.5-10.5) L 01/31/24 05:59 Phosphorus 3.3 mg/dL (2.5-4.5) 01/30/24 05:47 Magnesium 1.6 mg/dL (1.7-2.3) L 01/31/24 05:59 Total Bilirubin 0.3 mg/dL (0.15-1.2) 01/27/24 19:05 AST 12 U/L (0-40) 01/27/24 19:05 ALT 19 U/L (0-41) 01/27/24 19:05 Alkaline Phosphatase 80 U/L (40-130) 01/27/24 19:05 C-Reactive Protein 113.2 mg/L (0.0-4.9) H 01/27/24 19:05 Total Protein 7.7 g/dL (6.6-8.7) 01/27/24 19:05 Albumin 3.4 g/dL (3.5-5.2) L 01/27/24 19:05 Globulin 4.3 g/dL (1.3-4.6) 01/27/24 19:05 Procalcitonin 0.11 ng/mL (0-0.5) 01/28/24 02:38 Vancomycin Trough 17.9 ug/mL (10-15) H 01/30/24 20:10 Procedures Performed Sharp excisional debridement x 2 Wound VAC placement Vitals Last Vital Signs Temp 98.2 F 01/31/24 07:00 Pulse 95 01/31/24 07:00 Resp 19 H 01/31/24 07:00 BP 133/77 01/31/24 07:00 Pulse Ox 98 01/31/24 07:00 O2 Del Method Room Air 01/31/24 07:00 O2 Flow Rate 7 01/30/24 15:02 Discharge Plan Discharge Patient Disposition: Home Condition: Stable Prescriptions: New hydrocodone-acetaminophen 7.5-325 mg tablet 1 tab PO Q6H PRN (Reason: pain) Qty: 20 0RF docusate sodium [Colace] 100 mg capsule 100 mg PO BID Qty: 14 0RF clindamycin HCl [Cleocin HCl] 300 mg capsule 300 mg PO Q6H 7 Days Qty: 28 0RF Continued lisinopril 20 mg tablet 20 mg PO DAILY Qty: 90 3RF phentermine 15 mg capsule 15 mg PO DAILY Rx Instructions: must administer 2 hours after breakfast hydrochlorothiazide 50 mg tablet 50 mg PO DAILY metformin 1,000 mg tablet 1,000 mg PO BID topiramate 25 mg tablet 25 mg PO BID pantoprazole [Protonix] 40 mg tablet,delayed release (DR/EC) 40 mg PO DAILY Held naltrexone 50 mg tablet 50 mg PO DAILY Hold Instructions: Resume on 02/05/24. Discharge Orders: Discharge Order (Routine); Ordered 01/31/24 Ordered By: Juan J Ac Other Ambulatory Orders: DME: Wound Vac (Order) Location: None Selected Ordered By: Timmy Sena Ref[facility]: [facility] [place] Juan J Ac DO [Physician] - 2 weeks MARYLOU Arizmendi, CODEY [Primary Care Provider] - 4-7 days Discharge Diet: Advance as tolerated Discharge Activity: Resume usual activity Patient Instructions: Acute Wound Care (DC), Opioid Safety, Post Anesthesia Care Activity Restrictions/Additional Instructions: Do not soak wound VAC underwater. May clamp tubing, disconnect wound VAC and shower with bandage Discharge Attestations Time Spent in Discharge Care*: less than 30 min Quality Metrics Clinical Quality Measures [ No reported AMI, CVA or VTE this stay] Coding Level of Care Code Acute Code for Chg Fwd Diagnoses Morbidly obese E66.01 Surgical site infection T81.49XA Dehiscence of closure of skin T81.31XA Sepsis A41.9
[2024-01-31 15:00] VITALS: BP 134/83; PULSE 88; RESP 17; TEMP 36.8; O2SAT 97
[2024-01-31] MEDS: magnesium sulfate premix 4 GM/100 ML PREMIX IV (16:02)
[2024-01-31 18:16] VITALS: BP 134/83; PULSE 88; O2SAT 98
--- NOTE | 2024-02-01 16:17 | PC.NURSE ---
Wound vac called into [facility]. Confirmation #[id number]
== END 2024-01-31 18:18 | disposition home or self-care (01) | DRG 856 ==
LOC: ER 21:17 → MEDSURG 21:26
PROVIDERS: Emergency Medicine; Surgery; Admitting Provider Surgery; Emergency Provider Nurse Practitioner; PCP Nurse Practitioner Family; Visit Provider Surgery
PROC: 0JBM0ZZ Excision of Left Upper Leg Subcutaneous Tissue and Fascia, Open Approach (ICD-10-PCS; principal; 2024-01-28 10:10)
DX: T81.41XA Infection following a procedure, superficial incisional surgical site, initial encounter (principal); A41.9 Sepsis, unspecified organism; T81.31XA Disruption of external operation (surgical) wound, not elsewhere classified, initial encounter; Z68.45 Body mass index [BMI] 70 or greater, adult; I96 Gangrene, not elsewhere classified; T81.44XA Sepsis following a procedure, initial encounter; E66.01 Morbid (severe) obesity due to excess calories; I10 Essential (primary) hypertension; Z87.01 Personal history of pneumonia (recurrent); Z86.16 Personal history of COVID-19; Z86.718 Personal history of other venous thrombosis and embolism; Z80.1 Family history of malignant neoplasm of trachea, bronchus and lung
CPT/HCPCS: 36415; 73701; 80048; 80053; 80202; 83036; 83605; 83735; 84100; 84145; 85025; 86140; 87040; 87070; 87075; 87077; 87176; 87186; 87205; 96365; 96375; 99285; J0330; J1100; J1885; J2185; J2371; J2405; J2704; J3010; J3372; J3475; J7030; J7120

== ENCOUNTER 2024-03-14 12:00 | Oncology outpatient (recurring) (ONCR) | payer BC, MEDICAID, SELFPAY ==
[2024-02-15 13:36] LABS: Basophils # 0.1 10^3/uL (0.0-0.1); Basophils % 0.4 %; Eosinophils # 0.3 10^3/uL (0.0-0.8); Eosinophils % 1.7 %; Hematocrit 36.3 % (37-53); Lymphocytes # 2.5 10^3/uL (0.8-4.8); Lymphocytes % 15.9 %; Mean Corpuscular HGB Conc 29.8 g/dL (30-55); Mean Corpuscular Hemoglobin 24.9 pg (27-33); Mean Corpuscular Volume 83.8 fl (82-101); Mean Platelet Volume 9.9 fL (7.4-10.4); Monocytes # 1.2 10^3/uL (0.2-0.9); Monocytes % 7.5 %; Neutrophils # 11.47 10^3/uL (1.8-7.7); Nucleated Red Blood Cells % 0 %; Platelet Count 628 10^3/cmm (157-399); Red Blood Count 4.33 10^6/uL (3.85-5.65); Red Cell Distribution Width 15.6 % (12.1-15.1); White Blood Count 15.49 10^3/uL (3.29-11.43)
[2024-02-15 13:43] LABS: Erythrocyte Sedimentation Rate 95 mm/hr (0-10)
[2024-02-15 13:53] LABS: Alanine Aminotransferase 18 U/L (0-41); Albumin Level 3.8 g/dL (3.5-5.2); Alkaline Phosphatase 94 U/L (40-130); Anion Gap 19.4 (5-19); Aspartate Amino Transferase 19 U/L (0-40); Blood Urea Nitrogen 13 mg/dL (6-20); Calcium 8.9 mg/dL (8.5-10.5); Carbon Dioxide 21 mmol/L (22-29); Chloride 101 mmol/L (98-107); Creatinine Clr Calc Pharmacy 200.5475; Globulin 4.2 g/dL (1.3-4.6); Glomerular Filtration Rate 92.1 mL/min (90-130); Glucose 131 mg/dL (65-115); Lactate Dehydrogenase 165 U/L (135-225); Osmolality Calculated 286 mOsm/kg (285-295); Potassium 4.4 mmol/L (3.5-5.1); Sodium 137 mmol/L (136-145); Total Bilirubin 0.3 mg/dL (0.15-1.2)
[2024-03-14 12:07] LABS: Basophils % 0.3 %; Eosinophils # 0.2 10^3/uL (0.0-0.8); Eosinophils % 1.9 %; Lymphocytes # 1.8 10^3/uL (0.8-4.8); Lymphocytes % 14.4 %; Mean Corpuscular HGB Conc 29.4 g/dL (30-55); Mean Corpuscular Hemoglobin 23.8 pg (27-33); Monocytes # 0.8 10^3/uL (0.2-0.9); Monocytes % 6.2 %; Neutrophils # 9.71 10^3/uL (1.8-7.7); Neutrophils % 76.7 %; Nucleated Red Blood Cells % 0 %; Platelet Count 427 10^3/cmm (157-399); Red Cell Distribution Width 16.1 % (12.1-15.1); White Blood Count 12.65 10^3/uL (3.29-11.43)
[2024-03-14 12:37] LABS: Alanine Aminotransferase 16 U/L (0-41); Albumin Level 3.5 g/dL (3.5-5.2); Alkaline Phosphatase 92 U/L (40-130); Anion Gap 16.1 (5-19); Aspartate Amino Transferase 15 U/L (0-40); Blood Urea Nitrogen 12 mg/dL (6-20); Carbon Dioxide 22 mmol/L (22-29); Chloride 105 mmol/L (98-107); Creatinine Clr Calc Pharmacy 259.9423; Globulin 3.9 g/dL (1.3-4.6); Glomerular Filtration Rate 123.1 mL/min (90-130); Glucose 89 mg/dL (65-115); Iron 27 ug/dL (59-158); Lactate Dehydrogenase 131 U/L (135-225); Osmolality Calculated 287 mOsm/kg (285-295); Potassium 4.1 mmol/L (3.5-5.1); Sodium 139 mmol/L (136-145); Total Bilirubin 0.4 mg/dL (0.15-1.2); Total Iron Binding Capacity 268 mcg/dl; Total Protein 7.4 g/dL (6.6-8.7); Unsaturated Iron Binding 241 ug/dL (112-347)
== END 2024-03-15 23:59 | disposition home or self-care (01) ==
PROVIDERS: Internal Medicine Hematology & Oncology; Nurse Practitioner; PCP Nurse Practitioner Family; Visit Provider Internal Medicine
DX: Z53.9 Procedure and treatment not carried out, unspecified reason (principal); D50.9 Iron deficiency anemia, unspecified; D72.829 Elevated white blood cell count, unspecified
CPT/HCPCS: 36415; 80053; 83540; 83550; 83615; 85025; 85651

== ENCOUNTER 2024-04-22 07:37 | Oncology outpatient (recurring) (ONCR) | payer BC, MEDICAID, SELFPAY ==
[2024-04-22 08:02] VITALS: BP 115/63; PULSE 106; RESP 18; TEMP 36.7; O2SAT 94
[2024-04-22] MEDS: sodium chloride 0.9% 250 ML IV (08:24)
[2024-04-22] MEDS: acetaminophen 325 mg Tablet 650 MG PO (08:24)
[2024-04-22] MEDS: diphenhydrAMINE 50 mg/mL SDV 1mL 25 MG IVP (08:26)
[2024-04-22] MEDS: iron dextran 25 MG in SYRINGE 1 EACH 30 MG IVP (09:02)
[2024-04-22] MEDS: iron dextran 1,500 MG in sodium chloride 0.9% 1,000 ML 250.75 MG IV (10:02)
[2024-04-22 14:32] VITALS: BP 110/80; PULSE 88; RESP 20; TEMP 36.8; O2SAT 96
== END 2024-05-13 23:59 | disposition home or self-care (01) ==
PROVIDERS: PCP Nurse Practitioner Family; Visit Provider Internal Medicine Medical Oncology
DX: D50.9 Iron deficiency anemia, unspecified (principal); Z79.899 Other long term (current) drug therapy
CPT/HCPCS: 96365; 96366; 96375; J1200; J1750; J7030; J7050; J9999

== ENCOUNTER 2024-05-20 13:37 | Oncology outpatient (recurring) (ONCR) | payer BC, MEDICAID, SELFPAY ==
[2024-05-20 13:53] LABS: Basophils % 0.2 %; Eosinophils # 0.2 10^3/uL (0.0-0.8); Eosinophils % 1.8 %; Hematocrit 41.9 % (37-53); Lymphocytes # 2.3 10^3/uL (0.8-4.8); Lymphocytes % 18.1 %; Mean Corpuscular HGB Conc 30.1 g/dL (30-55); Mean Corpuscular Hemoglobin 24.1 pg (27-33); Mean Corpuscular Volume 80.3 fl (82-101); Mean Platelet Volume 10.3 fL (7.4-10.4); Monocytes # 0.9 10^3/uL (0.2-0.9); Monocytes % 6.8 %; Neutrophils # 9.03 10^3/uL (1.8-7.7); Neutrophils % 72.5 %; Nucleated Red Blood Cells % 0 %; Platelet Count 346 10^3/cmm (157-399); Red Blood Count 5.22 10^6/uL (3.85-5.65); Red Cell Distribution Width 19.6 % (12.1-15.1); White Blood Count 12.46 10^3/uL (3.29-11.43)
[2024-05-20 14:09] LABS: Alanine Aminotransferase 18 U/L (0-41); Albumin Level 3.9 g/dL (3.5-5.2); Alkaline Phosphatase 88 U/L (40-130); Anion Gap 14.1 (5-19); Aspartate Amino Transferase 16 U/L (0-40); Blood Urea Nitrogen 14 mg/dL (6-20); Calcium 9.4 mg/dL (8.5-10.5); Carbon Dioxide 26 mmol/L (22-29); Chloride 100 mmol/L (98-107); Creatinine Clr Calc Pharmacy 257.8468; Glomerular Filtration Rate 123.1 mL/min (90-130); Glucose 85 mg/dL (65-115); Osmolality Calculated 282 mOsm/kg (285-295); Potassium 4.1 mmol/L (3.5-5.1); Sodium 136 mmol/L (136-145); Total Bilirubin 0.4 mg/dL (0.15-1.2); Total Protein 7.9 g/dL (6.6-8.7)
[2024-05-20 15:01] LABS: Ferritin 317 ng/mL (30-400); Iron 43 ug/dL (59-158); Percent Saturation 19.5 % (20-50); Total Iron Binding Capacity 220 mcg/dl; Unsaturated Iron Binding 177 ug/dL (112-347)
== END 2024-06-12 23:59 | disposition home or self-care (01) ==
PROVIDERS: Nurse Practitioner; Nurse Practitioner Family; PCP Nurse Practitioner Family; Visit Provider Internal Medicine Medical Oncology
DX: D72.829 Elevated white blood cell count, unspecified (principal); D50.9 Iron deficiency anemia, unspecified
CPT/HCPCS: 36415; 80053; 82728; 83540; 83550; 85025

== ENCOUNTER 2024-07-15 11:40 | Oncology outpatient (recurring) (ONCR) | payer BC, MEDICAID, SELFPAY ==
[2024-07-15 12:01] LABS: Basophils % 0.3 %; Eosinophils # 0.2 10^3/uL (0.0-0.8); Eosinophils % 1.3 %; Hematocrit 42.4 % (37-53); Lymphocytes # 1.9 10^3/uL (0.8-4.8); Lymphocytes % 15.8 %; Mean Corpuscular HGB Conc 30.7 g/dL (30-55); Mean Corpuscular Hemoglobin 25.5 pg (27-33); Mean Corpuscular Volume 83.3 fl (82-101); Mean Platelet Volume 10.6 fL (7.4-10.4); Monocytes # 0.8 10^3/uL (0.2-0.9); Neutrophils # 8.89 10^3/uL (1.8-7.7); Neutrophils % 75.3 %; Nucleated Red Blood Cells % 0 %; Platelet Count 322 10^3/cmm (157-399); Red Blood Count 5.09 10^6/uL (3.85-5.65); Red Cell Distribution Width 17.3 % (12.1-15.1); White Blood Count 11.79 10^3/uL (3.29-11.43)
[2024-07-15 12:04] LABS: Erythrocyte Sedimentation Rate 79 mm/hr (0-10)
[2024-07-15 12:16] LABS: Alanine Aminotransferase 17 U/L (0-41); Albumin Level 3.8 g/dL (3.5-5.2); Alkaline Phosphatase 83 U/L (40-130); Anion Gap 15.1 (5-19); Aspartate Amino Transferase 14 U/L (0-40); Blood Urea Nitrogen 14 mg/dL (6-20); Calcium 9.1 mg/dL (8.5-10.5); Carbon Dioxide 21 mmol/L (22-29); Chloride 105 mmol/L (98-107); Ferritin 219 ng/mL (30-400); Globulin 3.7 g/dL (1.3-4.6); Glomerular Filtration Rate 123.1 mL/min (90-130); Glucose 86 mg/dL (65-115); Iron 41 ug/dL (59-158); Osmolality Calculated 284 mOsm/kg (285-295); Percent Saturation 17.9 % (20-50); Potassium 4.1 mmol/L (3.5-5.1); Sodium 137 mmol/L (136-145); Total Bilirubin 0.4 mg/dL (0.15-1.2); Total Iron Binding Capacity 228 mcg/dl; Total Protein 7.5 g/dL (6.6-8.7); Unsaturated Iron Binding 187 ug/dL (112-347)
== END 2024-08-12 23:59 | disposition home or self-care (01) ==
PROVIDERS: Nurse Practitioner; PCP Nurse Practitioner Family; Visit Provider Internal Medicine Medical Oncology
DX: D50.9 Iron deficiency anemia, unspecified (principal)
CPT/HCPCS: 36415; 80053; 82728; 83540; 83550; 85025; 85651

== ENCOUNTER 2024-07-23 09:30 | Outpatient (CLI) | payer BC, MEDICAID, SELFPAY ==
--- NOTE | 2024-07-23 09:38 | XRR_ITS ---
PROCEDURE INFORMATION: Exam: XR Left Shoulder Exam date and time: 07/23/2024 9:48 AM Age: 43 years old Clinical indication: Pain; Shoulder; Left; Additional info: S40.019a - contusion of unspecified shoulder, initial enc. . . TECHNIQUE: Imaging protocol: Radiologic exam of the left shoulder. Views: 2 or more views. COMPARISON: No relevant prior studies available. FINDINGS: Bones/joints: Mild acromioclavicular osteoarthritis. Normal alignment. No evidence of fracture. Soft tissues: Normal. XR/XR shoulder LT min 2V* [id number] IMPRESSION: Mild acromioclavicular osteoarthritis.
== END 2024-07-23 09:31 | disposition home or self-care (01) ==
LOC: RAD 09:31
PROVIDERS: PCP Nurse Practitioner Family; Visit Provider Nurse Practitioner Family
DX: S40.012A Contusion of left shoulder, initial encounter (principal); S43.005A Unspecified dislocation of left shoulder joint, initial encounter; M19.012 Primary osteoarthritis, left shoulder; X58.XXXA Exposure to other specified factors, initial encounter
CPT/HCPCS: 73030

== ENCOUNTER 2024-10-21 14:41 | Oncology outpatient (recurring) (ONCR) | payer BC, MEDICAID, SELFPAY ==
[2024-10-21 15:01] LABS: Hematocrit 42.3 % (37-53); Hemoglobin 13.10 g/dL (11.27-16.99); Mean Corpuscular HGB Conc 31.0 g/dL (30-55); Mean Corpuscular Hemoglobin 26.5 pg (27-33); Mean Corpuscular Volume 85.5 fl (82-101); Nucleated Red Blood Cells % 0 %; Platelet Count 311 10^3/cmm (157-399); Red Blood Count 4.95 10^6/uL (3.85-5.65); White Blood Count 16.47 10^3/uL (3.29-11.43)
[2024-10-21 15:19] LABS: Alanine Aminotransferase 19 U/L (0-41); Albumin Level 3.9 g/dL (3.5-5.2); Alkaline Phosphatase 89 U/L (40-130); Anion Gap 13.8 (5-19); Aspartate Amino Transferase 16 U/L (0-40); Blood Urea Nitrogen 16 mg/dL (6-20); Calcium 9.3 mg/dL (8.5-10.5); Carbon Dioxide 23 mmol/L (22-29); Chloride 103 mmol/L (98-107); Creatinine Clr Calc Pharmacy 195.5236; Ferritin 252 ng/mL (30-400); Globulin 3.9 g/dL (1.3-4.6); Glucose 83 mg/dL (65-115); Iron 34 ug/dL (59-158); Osmolality Calculated 282 mOsm/kg (285-295); Potassium 3.8 mmol/L (3.5-5.1); Sodium 136 mmol/L (136-145); Total Iron Binding Capacity 218 mcg/dl; Total Protein 7.8 g/dL (6.6-8.7); Unsaturated Iron Binding 184 ug/dL (112-347)
[2024-10-21 15:35] LABS: Vitamin B12 723 pg/mL (232-1245)
== END 2024-11-12 23:59 | disposition home or self-care (01) ==
PROVIDERS: PCP Nurse Practitioner Family; Visit Provider Internal Medicine Medical Oncology
DX: D50.9 Iron deficiency anemia, unspecified (principal); D72.829 Elevated white blood cell count, unspecified
CPT/HCPCS: 36415; 80053; 82607; 82728; 82746; 83540; 83550; 85025

== ENCOUNTER → 2024-12-02 09:40 | Outpatient (BNVA) | payer BC, MEDICAID, SELFPAY | PROVIDERS: PCP Nurse Practitioner Family; Visit Provider Nurse Practitioner Family | DX: D50.9 Iron deficiency anemia, unspecified (principal) | CPT/HCPCS: 80053; 82728; 83550; 85025 ==

== ENCOUNTER 2024-12-09 11:56 | Emergency (ER) | payer BC, MEDICAID, SELFPAY ==
[2024-12-09 12:01] VITALS: BP 186/110; PULSE 95; RESP 16; TEMP 37.2; O2SAT 98; BMI 65.7
--- NOTE | 2024-12-09 12:07 | W.ED.BACK ---
HPI - Back Pain/Injury General: Chief Complaint: Back Pain/Injury Stated Complaint: pain left lower back Time Seen by Provider: 12/09/24 12:04 History of Present Illness: 44-year-old man with a history of morbid obesity, hypertension who presents to the emergency room with left lower back pain. He says he woke up like this this morning. He says standing up makes it much worse. Movement makes it worse. He is tender to palpation in the left lateral lumbar region. No saddle numbness, no fecal or urinary retention or incontinence, no focal motor deficit, no sensory deficit. No known trauma. Related Data Home Medications ?Medication ?Instructions ?Recorded ?Confirmed hydrochlorothiazide 25 mg tablet mg PO 05/20/24 10/21/24 topiramate 25 mg tablet mg PO 07/15/24 10/21/24 naltrexone 50 mg tablet 50 mg PO DAILY 10/21/24 10/21/24 tirzepatide (weight loss) 5 mg/0.5 15 mg SUBCUT Weight loss 10/21/24 10/21/24 mL subcutaneous solution (Zepbound) Previous Rx's ?Medication ?Instructions ?Recorded lisinopril 20 mg tablet 20 mg PO DAILY #90 tabs 03/27/24 pantoprazole 40 mg tablet,delayed See Rx Instructions .Route 10/04/24 release .COMPLEX #30 tabs cyclobenzaprine 10 mg tablet 10 mg PO Q8H PRN muscle spasm #20 12/09/24 tabs diclofenac sodium 50 mg 50 mg PO BID PRN pain #14 tabs 12/09/24 tablet,delayed release hydrocodone 5 mg-acetaminophen 325 1 tab PO Q6H PRN pain #20 tabs 12/09/24 mg tablet polyethylene glycol 3350 17 17 g PO DAILY #510 grams 12/09/24 gram/dose oral powder (Miralax) prednisone 20 mg tablet 60 mg (3 x 20 mg) PO DAILY #20 tabs 12/09/24 Allergies Allergy/AdvReac Type Severity Reaction Status Date / Time amlodipine Allergy nose bleeds Verified 10/21/24 14:57 nirmatrelvir (From Paxlovid) Allergy ADR-Chest Verified 10/21/24 14:57 Pain Penicillins Allergy unknown Verified 10/21/24 14:57 ritonavir (From Paxlovid) Allergy ADR-Chest Verified 10/21/24 14:57 Pain Review of Systems Narrative: Constitutional symptoms: Negative except as documented in HPI. Skin symptoms: Negative except as documented in HPI. Eye symptoms: Negative except as documented in HPI. ENMT symptoms: Negative except as documented in HPI. Respiratory symptoms: Negative except as documented in HPI. Cardiovascular symptoms: Negative except as documented in HPI. Gastrointestinal symptoms: Negative except as documented in HPI. Genitourinary symptoms: Negative except as documented in HPI. Musculoskeletal symptoms: Negative except as documented in HPI. Neurologic symptoms: Negative except as documented in HPI. Psychiatric symptoms: Negative except as documented in HPI. Endocrine symptoms: Negative except as documented in HPI. PFSH ED PFSH: Medical History (Updated 12/09/24 @ 12:09 by Shae Trent MD) Shoulder dislocation Shoulder contusion Pneumonia Elevated WBC count COVID-19 Shortness of breath Iron deficiency anemia Morbidly obese Osteophyte, left knee Knee pain, left Cellulitis DVT, lower extremity Essential hypertension Conjunctivitis Surgical History History of colonoscopy (2009) History of esophagogastroduodenoscopy (EGD) (2009) History of excision of mass (03/28/23) Left thigh mass Hx of hand surgery right hand/pinky History of tonsillectomy Family History Father , UNKNOWN AGE Automobile accident Mother Lung cancer Social History Smoking and tobacco/nicotine status: never used tobacco/nicotine Alcohol intake: current Alcohol intake frequency: holidays/special occasions only Substance/Drug Use: never Marital status: Single Current occupational status: employed 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 Head: Normocephalic Neck: Trachea midline Eye: Extraocular movements are intact. Ears, nose, mouth and throat: Oral mucosa moist Respiratory: Respirations are non-labored Musculoskeletal: Normal ROM Back: no step off, no focal tenderness, some paraspinal muscle tenderness Neurological: Alert and oriented, No focal neurological deficit observed. Psychiatric: Cooperative, appropriate mood & affect. Course Vital Signs: Vital signs: Vital Signs Temperature 98.9 F 12/09/24 12:01 Pulse Rate 95 12/09/24 12:01 Respiratory Rate 16 12/09/24 12:01 Blood Pressure 186/110 12/09/24 12:01 Pulse Oximetry 98 12/09/24 12:01 Oxygen Delivery Me thod Room Air 12/09/24 12:01 MDM - Back Pain/Injury Medical Decision Making Medical decision making: Patient's reason for coming to the emergency room: Low back pain Social determinants: Patient is currently unemployed this would be detrimental. However he does have support as his mother is here with him. I reviewed the patient's medical record. History of hypertension and obesity. He had a recent visit to oncology for an elevated white count. Before that for shoulder injury. To primary provider I reviewed the patient's current home meds: Patient takes multiple medications for hypertension. Alternate historians: None Differential diagnosis: including but not limited to and based on the above HPI, review of systems and physical exam: Patient has a fairly obvious musculoskeletal lumbar strain. Likely related to his weight. No neurologic deficits and this is acute so imaging not indicated at this time. No trauma so a CT would not be needed. No neurologic deficits so an MRI would not be needed. Orders placed to evaluate differential diagnosis based on the above differential, HPI and physical exam Studies considered but not done: CT or MRI considered as above. Lab Review: Laboratory results were reviewed and interpreted by myself the emergency room physician. No lab work indicated today. Assessment of risk: - Level of risk mild - Was hospitalization considered? No Reexamination: Patient remained stable. No increased work of breathing. No altered mental status. No focal motor deficits. Assessment and plan: Low back strain ?P[place]o. [place]. IM Decadron. IM Norflex. IM Toradol. - Discharged home - Discussed plan with patient. Answered any questions. - Evaluation and treatment of this problem were appropriate in the emergency setting. No radiology studies performed this visit Discharge Plan Discharge Patient Disposition: Home Clinical Impression: Lumbar radiculopathy Condition: Stable Prescriptions: New cyclobenzaprine 10 mg tablet 10 mg PO Q8H PRN (Reason: muscle spasm) Qty: 20 0RF hydrocodone-acetaminophen 5-325 mg tablet 1 tab PO Q6H PRN (Reason: pain) Qty: 20 0RF prednisone 20 mg tablet 60 mg PO DAILY Qty: 20 0RF Rx Instructions: 3 tabs (60 mg) x 3 days. 2 tabs (40 mg) x 3 days. 1 tab (20 mg) x 3 days. 1/2 tab (10 mg) x 4 days diclofenac sodium 50 mg tablet,delayed release (DR/EC) 50 mg PO BID PRN (Reason: pain) Qty: 14 0RF polyethylene glycol 3350 [Miralax] 17 gram/dose powder 17 g PO DAILY Qty: 510 0RF Rx Instructions: Take 1 scoop daily while taking pain medications. No Action hydrochlorothiazide 25 mg tablet PO Zepbound 5 mg/0.5 mL solution 15 mg SUBCUT naltrexone 50 mg tablet 50 mg PO DAILY topiramate 25 mg tablet PO lisinopril 20 mg tablet 20 mg PO DAILY Qty: 90 3RF pantoprazole 40 mg tablet,delayed release (DR/EC) See Rx Instructions .ROUTE .COMPLEX Qty: 30 5RF Dose Instruction: TAKE 1 TABLET BY MOUTH EVERY DAY Rx Instructions: TAKE 1 TABLET BY MOUTH EVERY DAY Discharge Orders: Discharge ED (Routine); Ordered 12/09/24 Ordered By: Shae Trent Referrals: MARYLOU Arizmendi, CODEY [Primary Care Provider, Family Practice] Discharge Diet: Usual diet Discharge Activity: Increase activity as tolerated Patient Instructions: Acute Low Back Pain (ED), Opioid Safety, Pain Management, Patient Portal & Angie Instructions Activity Restrictions/Additional Instructions: Thank you for choosing [facility] for your healthcare needs today. You have been screened and evaluated and felt safe for discharge. Health conditions do change or evolve sometimes and as such it is important that you follow up with your Primary Doctor to be re checked, 3-5 days is a general good time frame for follow up. You are always welcome to return to the ED for re assessment if your symptoms are worsening or you have new concerns Print Language: Mongolian Coding Level of Care Code ED Assistant Manager/Embalmer for Dominique Garrido
[2024-12-09] MEDS: HYDROcodone-acetaminophen 10-325 mg Tablet 1 TAB PO (12:28)
[2024-12-09] MEDS: orphenadrine 30 mg/mL Inj 2 mL 60 MG IM (12:28)
[2024-12-09 12:33] VITALS: BP 149/103; PULSE 89; RESP 18; O2SAT 100
--- OUTSIDE RECORDS SUMMARY | 2024-12-09 12:34 | XMS_ITS | Encounter Summary ---
Author Organization [facility] Address [address] [place] [address] Care Team Providers Care Ripening Room Attendant Name Role Phone Omar Malhotra MD Primary Care Provider Loretta whitlock Encounter Details Date Type Department Care Team (Latest Contact Info) Description 09/12/2006 Outpatient Historical [facility] [address] 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
--- OUTSIDE RECORDS SUMMARY | 2024-12-09 12:34 | XMS_ITS | Encounter Summary ---
Author Organization [facility] Address [address] [place] [address] Care Team Providers Care Steel Layout Worker Name Role Phone Omar Malhotra MD Primary Care Provider Loretta whitlock Encounter Details Date Type Department Care Team (Latest Contact Info) Description 11/23/2005 Outpatient Historical [facility] [address] 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
--- OUTSIDE RECORDS SUMMARY | 2024-12-09 12:34 | XMS_ITS | Encounter Summary ---
Author Organization [facility] Address [address] [place] [address] Care Team Providers Care Engineering Teacher Name Role Phone Omar Malhotra MD Primary Care Provider Loretta whitlock Encounter Details Date Type Department Care Team (Late st Contact Info) Description 04/20/2007 Outpatient Historical [facility]ulance [address] 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
--- OUTSIDE RECORDS SUMMARY | 2024-12-09 12:34 | XMS_ITS | Encounter Summary ---
Author Organization [facility] Address [address] [place] [address] Care Team Providers Care Direct Customer Service Representative Name Role Phone Omar Malhotra MD Primary Care Provider Loretta whitlock Encounter Details Date Type Department Care Team (Late st Contact Info) Description 01/28/2008 Outpatient Historical [facility] [address] 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
--- OUTSIDE RECORDS SUMMARY | 2024-12-09 12:34 | XMS_ITS | Clinical Summary ---
Author Organization [facility] Address [address] [place] [address] Care Team Providers Care Inspector Agricultural Commodities Name Role Phone Unavailable Primary Care Provider Unavailabl e Allergies Active Allergy Reactions Criticality Noted Date Comments Penicillins Unknown 03/23/2008 Has never taken Medications naproxen (NAPROSYN) 500 mg tablet Take 500 mg by mouth 2 times daily with meals. Active metoprolol tartrate (LOPRESSOR) 25 mg tablet Take 25 mg by mouth 2 times daily. 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 Gender Identity Not on file Sexual Orientation Not on file Last Filed Vital Signs Vital Sign Reading Time Taken Comments Blood Pressure 151/83 08/06/2020 10:57 PM CDT Pulse 88 08/06/2020 10:57 PM CDT Temperature 36.8 C (98.2 F) 08/06/2020 9:31 PM CDT Respiratory Rate 18 08/06/2020 10:57 PM CDT Oxygen Saturation 96% 08/06/2020 10:57 PM CDT Inhaled Oxygen Concentration - - Weight 264 kg (582 lb) 08/06/2020 9:31 PM CDT Height 177.8 cm (5' 10 ) 08/06/2020 9:31 PM CDT Body Mass Index 83.51 08/06/2020 9:31 PM CDT Plan of Treatment Health Maintenance Due Date Last Done Comments DTAP/TDAP/TD VACCINES (1 - Tdap) 08/09/1999 HEPATITIS B VACCINES (1 of 3 - 19+ 3-dose series) 07/15 HPV VACCINES (1 - 3-dose SCDM series) 08/09/2007 INFLUENZA VACCINE (#1) 2024 Insurance [employer] Advance Directives For more information, please contact: [phone] * Full Code (Latest Code Status on File) Date Activated Date Inactivated Comments 05/29/2009 11:21 AM 06/02/2009 5:26 PM
--- OUTSIDE RECORDS SUMMARY | 2024-12-09 12:34 | XMS_ITS | Encounter Summary ---
Author Organization [facility] Address [address] [place] [address] Care Team Providers Care Branch Maker Name Role Phone Omar Malhotra MD Primary Care Provider Loretta whitlock Encounter Details Date Type Department Care Team (Latest Contact Info) Description 09/22/2006 Outpatient Historical [facility]ulance [address] 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
--- OUTSIDE RECORDS SUMMARY | 2024-12-09 12:34 | XMS_ITS | Clinical Summary ---
Author Organization [facility] Address [address] [place] [address] Care Team Providers Care Disaster Response Director Name Role Phone Unavailable Primary Care Provider Unavailabl e Allergies Active Allergy Reactions Criticality Noted Date Comments Penicillins Unknown 05/09/2016 Medications ibuprofen (ADVIL,MOTRIN) 800 MG tablet Take 800 mg by mouth every 6 (six) hours as needed for mild pain (scale 1-3). Active Social History Tobacco Use Types Packs/Day Years Used Date Smoking Tobacco: Never Sex and Gender Information Value Date Recorded Sex Assigned at Not on file Legal Sex Male 11:52 AM CDT Gender Identity Not on file Sexual Orientation Not on file Last Filed Vital Signs Vital Sign Reading Time Taken Comments Blood Pressure 120/62 05/09/2016 2:31 PM CDT Pulse - - Temperature 36.5 C (97.7 F) 05/09/2016 12:07 PM CDT Respiratory Rate 15 05/09/2016 2:31 PM CDT Oxygen Saturation 98% 05/09/2016 2:31 PM CDT Inhaled Oxygen Concentration - - Weight - - Height 177.8 cm (5' 10 ) 05/09/2016 12:07 PM CDT Body Mass Index - - Plan of Treatment Health Maintenance Due Date Last Done Comments Annual Wellness 1980 Varicella Vaccines (1 of 2 - 13+ 2-dose series) 1993 Hepatitis B Vaccines (1 of 3 - 19+ 3-dose series) 08/09/1999 Td, Tdap Vaccines Adult 08/09/1999 HPV Vaccines (1 - 3-dose SCD M series) 08/09/2007 Influenza Vaccination (#1) 2024 HIB Vaccines Aged Out No longer eligi ble based on patient's age to complete this topic Hepatitis A Vaccines Aged Out No long er eligible based on patient's age to complete this topic IPV Vaccines Aged Out No longer eligi ble based on patient's age to complete this topic Meningococcal Vaccines Aged Out No lo nger eligible based on patient's age to complete this topic Pneumococcal Vaccine: Pediat rics (0 to 5 Years) and At-Risk Patients (6 to 49 Years) Aged Out No longer eligible b ased on patient's age to complete this topic RSV Mab Nirsevimab (Beyfortu s) <20 months Aged Out No longer eligible b ased on patient's age to complete this topic Rotavirus Vaccines Aged Out No longer eligible based on patient's age to complete this topic
--- OUTSIDE RECORDS SUMMARY | 2024-12-09 12:34 | XMS_ITS | Encounter Summary ---
Author Organization [facility] Address [address] 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
--- OUTSIDE RECORDS SUMMARY | 2024-12-09 12:34 | XMS_ITS | Clinical Summary ---
Author Organization [facility] Address [address] [place] [address] Care Team Providers Care Strand Forming Machine Operator Name Role Phone Unavailable Primary Care Provider Unavailabl e Allergies Active Allergy Reactions Criticality Noted Date Comments Penicillins Unknown 03/23/2008 Has never taken Medications naproxen (NAPROSYN) 500 mg tablet Take 500 mg by mouth 2 times daily with meals. 08/06/2020 Active metoprolol tartrate (LOPRESSOR) 25 mg tablet Take 25 mg by mouth 2 times daily. 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
== END 2024-12-09 12:34 | disposition home or self-care (01) ==
PROVIDERS: Emergency Provider Emergency Medicine; PCP Nurse Practitioner Family
DX: M54.16 Radiculopathy, lumbar region (principal); I10 Essential (primary) hypertension
CPT/HCPCS: 96372; 99284; J1100; J1885; J2360; J9999

== ENCOUNTER 2025-01-20 11:53 | Oncology outpatient (recurring) (ONCR) | payer BC, MEDICAID, SELFPAY ==
[2025-01-20 13:16] LABS: Hematocrit 45.2 % (37-53); Hemoglobin 14.00 g/dL (11.27-16.99); Mean Corpuscular HGB Conc 31.0 g/dL (30-55); Mean Corpuscular Hemoglobin 26.7 pg (27-33); Mean Corpuscular Volume 86.1 fl (82-101); Nucleated Red Blood Cells % 0 %; Platelet Count 337 10^3/cmm (157-399); Red Blood Count 5.25 10^6/uL (3.85-5.65); White Blood Count 12.92 10^3/uL (3.29-11.43)
[2025-01-20 13:40] LABS: Alanine Aminotransferase 19 U/L (0-41); Albumin Level 3.7 g/dL (3.5-5.2); Alkaline Phosphatase 89 U/L (40-130); Anion Gap 16.3 (5-19); Aspartate Amino Transferase 15 U/L (0-40); Blood Urea Nitrogen 14 mg/dL (6-20); Calcium 9.6 mg/dL (8.5-10.5); Carbon Dioxide 21 mmol/L (22-29); Chloride 106 mmol/L (98-107); Ferritin 300 ng/mL (30-400); Globulin 3.9 g/dL (1.3-4.6); Glucose 108 mg/dL (65-115); Iron 37 ug/dL (59-158); Osmolality Calculated 289 mOsm/kg (285-295); Potassium 4.3 mmol/L (3.5-5.1); Sodium 139 mmol/L (136-145); Total Iron Binding Capacity 215 mcg/dl; Total Protein 7.6 g/dL (6.6-8.7); Unsaturated Iron Binding 178 ug/dL (112-347)
== END 2025-02-12 23:59 | disposition home or self-care (01) ==
PROVIDERS: Nurse Practitioner Family; PCP Nurse Practitioner Family; Visit Provider Internal Medicine Medical Oncology
DX: D50.9 Iron deficiency anemia, unspecified (principal)
CPT/HCPCS: 36415; 80053; 82728; 83540; 83550; 85025